=== PATIENT | male | born 1965 | race Caucasian/White ===

== ENCOUNTER 2017-03-12 15:36 | Inpatient (IN) | payer OTHER ==
[~2017-03-12] VITALS: Ht 172.7 cm; Wt 68.5 kg
[2017-03-12] VITALS (10 sets, daily range): BP systolic 84–127; BP diastolic 56–83; PULSE 98–149; RESP 18–24; TEMP 99–102.3; O2SAT 97–99
[~2017-03-12 15:36] MED LIST: Z.0.NO CURRENT MEDS
--- NOTE | 2017-03-12 15:48 | PD ---
Physical Exam Time Seen by Provider: 15:45 Narrative 52yo M c/o L knee, neck and back pain, and left foot pain after falling due to possible syncopal episode on . Patient seen in triage. VS reviewed. Awaiting bed placement. Data Data Last Documented VS Vital Signs Date Time Temp Pulse Resp B/P Pulse Ox O2 Delivery O2 Flow Rate FiO2 03/12/17 15:37 99.6 149 20 84/58 98 Room Air MDM Supervised Visit with DUNIA: Angela Albarran Mar 12, 2017 15:48
[2017-03-12] MEDS ORDERED: PRIL20TA2 PO (17:02)
[2017-03-12] MEDS ORDERED: LEVE500 PO (17:02)
[2017-03-12] MEDS ORDERED: [UNRECOGNIZED DRUG - REMARK] (17:04)
--- NOTE | 2017-03-12 17:12 | PD ---
HPI Chief Complaint: Syncope/Near-Syncope Time Seen by Provider: 17:11 Travel History International Travel<30 days: No Contact w/Intl Traveler<30days: No Traveled to known affect area: No History of Present Illness HPI 52-year-old male with PMH of chronic alcoholism presents to the ED for evaluation of left knee pain and back pain following unwitnessed fall 3 days ago. Patient states that he became dizzy and fell. He states he's been minimally ambulatory since the accident. On presentation he denies fevers, chills, headache, chest pain, palpitations, abdominal pain, nausea, vomiting, dysuria. He states he has not had a drink today, last drink "a few beers" last night. He endorses history of alcohol withdrawal seizures. He denies chronic health problems and takes no daily medications. PFSH Past Medical History Blood Disorders: No Cancer: No Cardiovascular Problems: No Endocrine: No Gastrointestinal Disorders: No Genitourinary: No Immune Disorder: No Musculoskeletal: No Neurologic: No Psychiatric: No Respiratory: No Seizures: Yes (2 YEARS AGO) Influenza Vaccination: No Past Surgical History Pacemaker: No Social History Alcohol Use: Yes (BEER [employer] LIQUOR EVERY DAY) Tobacco Use: No (quit 3.5 yrs ago) Substance Use: No Allergies-Medications (Allergen,Severity, Reaction): Coded Allergies: No Known Allergies (Verified , 03/12/17) Reported Meds & Prescriptions Reported Meds & Active Scripts Active Reported [bp med unknown] Prilosec (Omeprazole Magnesium) 20 Mg Tab 20 Mg PO DAILY Keppra (Levetiracetam) 500 Mg Tab 500 Mg PO BID Review of Systems Except as stated in HPI: all other systems reviewed are Neg Physical Exam Narrative GENERAL: Well-nourished, thin, tremulous, chronically ill-appearing white male in no acute distress. SKIN: Focused skin assessment warm/dry. HEAD: Normocephalic. Atraumatic. EYES: No scleral icterus. No injection or drainage. PERRLA. EOMI. NECK: Supple, trachea midline. No JVD or lymphadenopathy. Tender to palpation of the paraspinal musculature of the neck. No midline tenderness. CARDIOVASCULAR: Regular rate and rhythm without murmurs, gallops, or rubs. RESPIRATORY: Breath sounds equal bilaterally. No accessory muscle use. GASTROINTESTINAL: Abdomen flat, nontender, nondistended. Active bowel sounds. MUSCULOSKELETAL: No cyanosis, or edema. FOCUSED LEFT LOWER EXTREMITY EXAM: 2+ DP pulse. Tender to palpation of the anterior aspect of the knee. No patellar balloting. No warmth. No erythema. Patient maintains active ROM but this is painful. Neurovascularly intact. NEUROLOGICAL: Awake and alert. Cranial nerves II through XII intact. Motor and sensory grossly within normal limits. Five out of 5 muscle strength in all muscle groups. Normal speech. BACK: No obvious deformity. No CVA tenderness. Tender to palpation of the midline lumbar spine. Tender to palpation of the paraspinal musculature in the mid thoracic area. Data Data Last Documented VS Vital Signs Date Time Temp Pulse Resp B/P Pulse Ox O2 Delivery O2 Flow Rate FiO2 03/12/17 19:58 102.3 125 24 126/83 98 Room Air Orders Complete Blood Count With Diff (03/12/17:) Comprehensive Metabolic Panel (03/12/17:) Magnesium (Mg) (03/12/17:) Ckmb (Isoenzyme) Profile (03/12/17:) Troponin I (03/12/17:) Act Partial Throm Time (Ptt) (03/12/17:) Prothrombin Time / Inr (Pt) (03/12/17:) Urinalysis - C+S If Indicated (03/12/17 17:) Chest, Single Ap (03/12/17 17:22) Ct Brain W/O Iv Contrast(Rout) (03/12/17 17:) Ecg Monitoring (03/12/17:) Iv Access Insert/Monitor (03/12/17:) Oximetry (03/12/17:) Sodium Chloride 0.9% Flush (Ns Flush) (03/12/17 17:30) Sodium Chlor 0.9% 1000 Ml Inj (Ns 1000 M (03/12/17 17:22) Lorazepam Inj (Ativan Inj) (03/12/17 17:30) Alcohol Withdrawal Asmt-Ciwa ONCE (03/12/17 17:23) Lorazepam (Ativan) (03/12/17 17:30) Lorazepam Inj (Ativan Inj) (03/12/17 17:30) Lorazepam (Ativan) (03/12/17 17:30) Lorazepam Inj (Ativan Inj) (03/12/17 17:30) Lorazepam Inj (Ativan Inj) (03/12/17 17:30) Lorazepam Inj (Ativan Inj) (03/12/17 17:30) Knee, Complete (4vws) (03/12/17 17:40) Spine, Lumbar - Ltd (Ap & Lat) (03/12/17 17:40) Electrocardiogram (03/12/17 17:02) Calcium Gluconate Inj (Calcium Gluconate (03/12/17 19:45) Sodium Chlor 0.9% 1000 Ml Inj (Ns 1000 M (03/12/17 20:00) Lactic Acid Sepsis Protocol (03/12/17 20:00) Blood Culture (03/12/17 20:00) Acetaminophen (Tylenol) (03/12/17 20:15) Piperacil-Tazo 3.375 Gm Premix (Zosyn 3. (03/12/17 20:15) Magnesium Sulfate 1 Gm Premix (Magnesium (03/12/17 20:15) Labs Laboratory Tests Test 03/12/17 17:40 White Blood Count 15.1 TH/MM3 Red Blood Count 3.28 MIL/MM3 Hemoglobin 11.4 GM/DL Hematocrit 33.8 % Mean Corpuscular Volume 103.0 FL Mean Corpuscular Hemoglobin 34.6 PG Mean Corpuscular Hemoglobin 33.6 % Concent Red Cell Distribution Width 16.1 % Platelet Count 225 TH/MM3 Mean Platelet Volume 9.1 FL Neutrophils (%) (Auto) 81.3 % Lymphocytes (%) (Auto) 4.6 % Monocytes (%) (Auto) 13.4 % Eosinophils (%) (Auto) 0.0 % Basophils (%) (Auto) 0.7 % Neutrophils # (Auto) 12.3 TH/MM3 Lymphocytes # (Auto) 0.7 TH/MM3 Monocytes # (Auto) 2.0 TH/MM3 Eosinophils # (Auto) 0.0 TH/MM3 Basophils # (Auto) 0.1 TH/MM3 CBC Comment DIFF FINAL Differential Comment Prothrombin Time 10.7 SEC Prothromb Time International 1.0 RATIO Ratio Activated Partial 31.9 SEC Thromboplast Time Sodium Level 128 MEQ/L Potassium Level 3.6 MEQ/L Chloride Level 95 MEQ/L Carbon Dioxide Level 20.9 MEQ/L Anion Gap 12 MEQ/L Blood Urea Nitrogen 51 MG/DL Creatinine 2.34 MG/DL Estimat Glomerular Filtration 29 ML/MIN Rate Random Glucose 142 MG/DL Calcium Level 6.5 MG/DL Protein Corrected Calcium 6.3 MG/DL Magnesium Level 0.8 MG/DL Total Bilirubin 0.6 MG/DL Aspartate Amino Transf 27 U/L (AST/SGOT) Alanine Aminotransferase 25 U/L (ALT/SGPT) Alkaline Phosphatase 117 U/L Total Creatine Kinase 80 U/L Troponin I LESS THAN 0.02 NG/ML Total Protein 7.6 GM/DL Albumin 2.8 GM/DL [facility] Medical Decision Making Medical Screen Exam Complete: Yes Emergency Medical Condition: Yes Interpretation(s) EKG rate 99, sinus rhythm, sinus arrhythmia. IA interval 125, QRS 90, QTC 363. Normal axis. No acute ST changes. Reviewed by Dr. Jordan. Differential Diagnosis Alcohol withdrawal versus musculoskeletal pain versus ACS versus ICH versus seizure versus UTI versus other Narrative Course 52-year-old male with PMH of chronic alcoholism, withdrawal seizure presents to the ED for evaluation of left knee pain and back pain following unwitnessed fall 3 days ago. Patient states that he became dizzy and fell. He states he's been minimally ambulatory since the accident. On presentation he denies fevers , chills, headache, chest pain, palpitations, abdominal pain, nausea, vomiting, dysuria. He states he has not had a drink today, last drink "a few beers" last night. Temp 99.6, pulse 149, BP 84/58 on presentation. Physical exam reveals a chronically ill-appearing white male in no acute distress. No focal neuro deficits. No appreciable M/R/G. Chest CTAB. Abdomen soft and nontender. Left anterior knee tender without warmth or erythema. Range of motion intact though painful. Some paraspinal muscular tenderness in the cervical and thoracic regions. Mild midline tenderness in the lumbar region. No CVA tenderness. IV was established. The patient was administered 1 L normal saline. CIWA protocol was ordered and the patient was administered 1 mg Ativan IV. EKG as above. Cardiac enzymes negative 1. CXR unremarkable. CBC: WBC 15.1 with a left shift. Hemoglobin 11.4. CMP: Sodium 128, chloride 95. BUN 51, creatinine 2.3. Protein corrected calcium 6.3. Magnesium 0.8. CT brain: Unremarkable. Lumbar spine x-ray: Degenerative changes without acute pathology. Left knee x-ray: Small effusion and prepatellar swelling. On recheck rectal temp 102.3. Pulse 125. BP 126/83. Patient was administered 2 additional liters of normal saline, 1 g calcium IV, 1 g Tylenol by mouth, 1 g magnesium 2 IV. Blood cultures were obtained. Lactate was drawn. The UA is pending but I suspect this is the source of the leukocytosis. Zosyn ordered. The patient meet severe sepsis criteria. Plan to admit to the medicine service for further evaluation of suspected urosepsis, acute kidney injury, acute alcohol withdrawal. I discussed this plan with the patient who is agreeable. I spoke with who agrees to accept the patient to the medicine service under Dr. Kern. Please see medicine notes for disposition. Sepsis Criteria SIRS Criteria (2 or more): Temp > 100.9 or < 96.8, Heart rate over 90, WBC > 61198, < 4000 or > 10% bands Sepsis Criteria (SIRS+source): Infect source susp/known Severe Sepsis (+one): Acute Oliguria/Renal Failure Criteria Outcome: Meets severe sepsis criteria Nory Sr Mar 12, 2017 17:12
[2017-03-12] MEDS ORDERED: SODIUM CHLOR 0.9% 1000 ML INJ 1,000 ML IV ONE ×2 (17:22→20:00)
[2017-03-12] MEDS ORDERED: LORazepam 1 MG TAB PO PRN (17:30)
[2017-03-12] MEDS ORDERED: LORazepam 2 MG/ML VIAL IV PUSH PRN ×3 (17:30)
[2017-03-12] MEDS ORDERED: LORazepam 2 MG/ML VIAL IV PUSH ONE (17:30)
[2017-03-12] MEDS ORDERED: LORazepam 2 MG TAB PO PRN (17:30)
[2017-03-12] MEDS ORDERED: SODIUM CHLORIDE 0.9% FLUSH 10 ML FLUSH IVF PRN (17:30)
--- NOTE | 2017-03-12 17:59 | RADRPT ---
EXAM DATE/TIME: 03/12/2017 17:27 [facility] COMPARISON: No previous studies available for comparison. INDICATIONS : Syncope. MEDICAL HISTORY : None. SURGICAL HISTORY : None. ENCOUNTER: Initial ACUITY: 1 day PAIN SCORE: 0/10 LOCATION: Bilateral chest FINDINGS: A single view of the chest demonstrates the lungs to be symmetrically aerated without evidence of mas s, infiltrate or effusion. The cardiomediastinal contours are unremarkable. Osseous structures are intact. CONCLUSION: No evidence of acute cardiopulmonary disease. Juanpablo Berry MD on March 12, 2017 at 17:57 Board Certified Radiologist. This report was verified electronically.
--- NOTE | 2017-03-12 18:10 | EKG ---
Date Performed: 03/12/2017 Time Performed: 17:02:09 PTAGE: 52 years EKG: Sinus rhythm WITH SINUS ARRHYTHMIA POSSIBLE RIGHT VENTRICULAR CONDUCTION DELAY BORDERLINE ECG Compared to the PREVIOUS TRACING rate has decreased PREVIOUS TRACIN08/30/2006 12.41 DOCTOR: Tate Patel Interpretating Date/Time 03/12/2017 18:10:04
--- NOTE | 2017-03-12 18:23 | RADRPT ---
EXAM DATE/TIME: 03/12/2017 17:52 [facility] COMPARISON: No previous studies available for comparison. INDICATIONS : Low back pain, fell MEDICAL HISTORY : None. SURGICAL HISTORY : None. ENCOUNTER: Initial ACUITY: 3 days PAIN SCORE: 5/10 LOCATION: Lumbar spine FINDINGS: There is mild levoconvex curvature centered around L3. No fracture or subluxation seen in the lumbar spine. Vertebral bodies have normal height. There is moderate to severe disc space narrowing with vacuum phenomenon at L4/L5 and L5/S1. There is mild disc space narrowing at the other levels. Moderate to severe bilateral facet osteoarthritis at L4/L5 and L5/S1. There is mild facet osteoarthri tis at the other levels. CONCLUSION: 1. Mild scoliosis and lower lumbar predominant degenerative changes as above. 2. No fracture or subluxation. Juanpablo Berry MD on March 12, 2017 at 18:20 Board Certified Radiologist. This report was verified electronically.
--- NOTE | 2017-03-12 18:24 | RADRPT ---
EXAM DATE/TIME: 03/12/2017 17:54 [facility] COMPARISON: No previous studies available for comparison. INDICATIONS : Left knee pain, fell MEDICAL HISTORY : None. SURGICAL HISTORY : None. ENCOUNTER: Initial ACUITY: 3 days PAIN SCORE: 7/10 LOCATION: Left Knee FINDINGS: No fracture or subluxation of the left knee. There does appear to be a small joint effusion, nonspeci fic. Mild prepatellar soft tissue swelling. CONCLUSION: Intact left knee. Small, nonspecific joint effusion and mild prepatellar soft tissue swelling. Juanpablo Berry MD on March 12, 2017 at 18:22 Board Certified Radiologist. This report was verified electronically.
--- NOTE | 2017-03-12 18:40 | RADRPT ---
EXAM DATE/TIME: 03/12/2017 18:05 [facility] COMPARISON: No previous studies available for comparison. INDICATIONS : DIZZINESS,FALL,SYNCOPE RADIATION DOSE: 35.45 CTDIvol (mGy) MEDICAL HISTORY : Seizures. SURGICAL HISTORY : None. ENCOUNTER: Initial ACUITY: 1 day PAIN SCALE: 0/10 LOCATION: cranial TECHNIQUE: Multiple contiguous axial images were obtained of the head. Using automated exposure control and adj ustment of the mA and/or kV according to patient size, radiation dose was kept as low as reasonably a chievable to obtain optimal diagnostic quality images. DICOM format image data is available electro nically for review and comparison. FINDINGS: CEREBRUM: The ventricles are normal for age. No evidence of midline shift, mass lesion, hemorrhage or acute in farction. No extra-axial fluid collections are seen. POSTERIOR FOSSA: The cerebellum and brainstem are intact. The 4th ventricle is midline. The cerebellopontine angle i s unremarkable. EXTRACRANIAL: The visualized portion of the orbits is intact. SKULL: The calvaria is intact. No evidence of skull fracture. CONCLUSION: Negative noncontrast head CT. Juanpablo Berry MD on March 12, 2017 at 18:38 Board Certified Radiologist. This report was verified electronically.
[2017-03-12 18:51] LABS: AUTOMATED NEUTROPHIL # 12.3 TH/MM3 (1.8-7.7); BASOPHIL # 0.1 TH/MM3 (0-0.2); BASOPHIL % 0.7 % (0.0-2.0); HEMATOCRIT 33.8 % (39.0-51.0); HEMO FLAGS DIFF FINAL; LYMPH % 4.6 % (9.0-44.0); LYMPHOCYTE # 0.7 TH/MM3 (1.0-4.8); MEAN CORPUSCULAR HEMOGLOBIN 34.6 PG (27.0-34.0); MEAN CORPUSCULAR HGB CONC 33.6 % (32.0-36.0); MONO % 13.4 % (0.0-8.0); NEUT % 81.3 % (16.0-70.0); PLATELET COUNT 225 TH/MM3 (150-450); RED BLOOD COUNT 3.28 MIL/MM3 (4.50-5.90); RED CELL DISTRIBUTION WIDTH 16.1 % (11.6-17.2); WHITE BLOOD COUNT 15.1 TH/MM3 (4.0-11.0)
[2017-03-12 19:01] LABS: APTT (PATIENT) 31.9 SEC (24.3-30.1); PROTHROMBIN TIME - PATIENT 10.7 SEC (9.8-11.6)
[2017-03-12 19:16] LABS: ALKALINE PHOSPHATASE 117 U/L (45-117); ALT (GPT) 25 U/L (12-78); ANION GAP 12 MEQ/L (5-15); AST (GOT) 27 U/L (15-37); BICARBONATE 20.9 MEQ/L (21.0-32.0); BLOOD UREA NITROGEN 51 MG/DL (7-18); CHLORIDE 95 MEQ/L (98-107); GLOMERULAR FILTRATION RATE 29 ML/MIN (>89); MAGNESIUM 0.8 MG/DL (1.5-2.5); POTASSIUM 3.6 MEQ/L (3.5-5.1); SODIUM (NA) 128 MEQ/L (136-145); TOTAL BILIRUBIN ADULT 0.6 MG/DL (0.2-1.0)
[2017-03-12 19:28] LABS: CREATINE KINASE 80 U/L (39-308)
[2017-03-12 19:30] LABS: CALCIUM-PROTEIN CORRECTED 6.3 MG/DL (8.5-10.1)
[2017-03-12] MEDS ORDERED: CALCIUM GLUCONATE INJ 1 GM in SODIUM CHLORIDE 0.9% INJ 100 ML IV ONE (19:45)
[2017-03-12] MEDS: LORazepam 2 MG/ML VIAL IV PUSH PRN ×2 (20:04→20:06)
[2017-03-12] MEDS ORDERED: ACETAMINOPHEN 500 MG CPLT PO ONE (20:15)
[2017-03-12] MEDS ORDERED: PIPERACIL-TAZO 3.375 GM PREMIX 50 ML IV ONE (20:15)
[2017-03-12] MEDS: MAGNESIUM SULFATE 1 GM PREMIX 100 ML IV SCH ×2 (20:25→21:10)
--- NOTE | 2017-03-12 22:48 | HHI.FPPN ---
Subjective Remarks Medicine attending note: Patient seen and examined 22:40. 52-year-old gentleman who initially was somnolent, had received some prior Ativan per protocol, awake, with verbal processing was able to say that it was [facility], the eighth month. When asked for history of present illness initially he states that he did not know what happened and then later stated that in his home he got up from the sofa, went to the kitchen and "blacked out" . From there he recalls having low back pain, left knee pain. Patient on continuous prompting does not give additional history. Was not aware that he had a fever. Denies having any cough, vomiting or diarrhea, urinary symptoms. Records indicate history of chronic alcoholism, when asked about his consumption the patient states "I drink a little ". Would not be more specific. Denies smoking. Denies substance use according to the records. Old records to indicate history of a seizure disorder dating back 10 years. Possibly alcohol related. Please refer to the resident's history and physical for complete discussion of presenting illness, past medical history, family history, social history, review of systems. Objective Vitals Vital signs noted. Temperature early recorded to be 102.3. Respirations 20 temperature pulse 98 blood pressure 119/79 saturation 97% on room air. Gen. appearance: Middle-age gentleman who makes eye contact, paucity of speech, has to be pressed verbally for any details. HEENT: Tympanic membranes not well seen. Pupils equal round reactive BMs intact oropharynx diminished dentition. No obvious abscess. Neck: No adenopathy. Lungs: Diminished clear breath sounds, occasional rhonchi. Cardiac: S1-S2, no S3, no rubs, and no murmurs. Abdomen: Active bowel sounds, appearance unremarkable. On palpation organomegaly, no pulsatile masses, no tenderness. Extremities: Notable for significant effusion left knee, patient reports severe pain on attempting to flex his knee. There is no obvious puncture wounds, no redness. Left knee does have warmth. Right knee full range of motion, normal temperature to touch, no effusion. Muscular skeletal: Inspection of the back does not reveal any obvious injuries or deformities. Neurologic: Cranial nerves II through XII not localize. Mental status is as above may have the significantly affected by recent Ativan. Vital Signs Date Time Temp Pulse Resp B/P Pulse Ox O2 Delivery O2 Flow Rate FiO2 03/12/17 21:45 99.0 98 20 119/74 97 Room Air 03/12/17 19:58 102.3 125 24 126/83 98 Room Air 03/12/17 17:08 125 21 127/78 98 Room Air 03/12/17 15:58 137 20 87/56 98 Room Air 03/12/17 15:37 99.6 149 20 84/58 98 Room Air Result Diagram: 03/12/17 1740 03/12/17 1740 A/P Assessment and Plan Clinical assessment 52-year-old gentleman admitted with history of "blacking out", complaining of left knee pain with the significant effusion and severe pain on flexion and extension, low back pain with scoliosis mild noted on x-ray, no obvious bony injury. X-rays of the left knee are nonrevealing for bony injury. Other abnormalities including hyponatremia 128, relative hypokalemia 3.6, and 9 12, creatinine 2.34, decreased LCM 6.3. I put some count 15,100 hemoglobin 11.4 hematocrit 38 3.8, platelets are 25,000. Patient meets criteria for sepsis and foot cultures have been drawn as well as empiric antibiotics administered. Additional history pending patient's arousal from probable Ativan affect. Patient seen and examined, case to be discussed with the resident team, Anand. agrees with assessment and plan as indicated and outlined and ordered at this time. Nixon Kern MD Mar 12, 2017 22:48
[2017-03-12] MEDS ORDERED: SODIUM CHLORIDE 0.9% FLUSH 10 ML FLUSH IV FLUSH PRN (23:00)
--- NOTE | 2017-03-12 23:46 | HHI.HP ---
[facility] Service Family Medicine Primary Care Physician [facility] Admission Diagnosis severe sepsis, acute kidney injury, alcohol withdrawal Diagnoses: International Travel<30 Days: No Contact w/Intl Traveler<30days: No Known Affected Area: No History of Present Illness 52 year old male with a history of alcoholism presents to the ED after falling in his kitchen. he is uncertain but believes he may have blacked out for a few seconds when he fell. His roommate witnessed the incident and did not report any convulsions. He did not have loss of stool or urine or bite his tongue. He fell backwards, twisted his knee, and landed on his buttocks, lower back, and right shoulder. He has pain and swelling in his left knee and pain in his lower back and right shoulder. He has pain in his posterior neck. He reports no fevers, chills, recent weight loss, chest pain, abdominal pain, nausea, vomiting , or diarrhea. He reports drinking a few beers last night. He has a history of alcohol withdrawal seizures in the past, 4X at least. He reports no significant past medication history. He has gotten intermittently lightheaded for the past 5 years ever since starting new blood pressure medicines. He has never passed out before. He reports no heart problems in the past. Review of Systems Constitutional: DENIES: Diaphoretic episodes, Fatigue, Fever, Weight gain, Chills, Change in appetite, Night Sweats Endocrine: DENIES: Polydipsia, Polyuria, Polyphagia Eyes: DENIES: Blurred vision, Eye pain, Vision loss, Double Vision Ears, nose, mouth, throat: DENIES: Nasal discharge, Throat pain Respiratory: DENIES: Cough, Wheezing, Sputum production, Shortness of breath Cardiovascular: DENIES: Chest pain, Palpitations, Dyspnea on Exertion, Lower Extremity Edema, Claudication Gastrointestinal: DENIES: Abdominal pain, Black stools, Bloody stools, Constipation, Diarrhea, Nausea, Vomiting Genitourinary: DENIES: Urgency, Hematuria, Dysuria Musculoskeletal: COMPLAINS OF: Joint pain, Stiffness, Joint Swelling, Back pain , Neck pain, DENIES: Muscle aches Integumentary: DENIES: Rash Hematologic/lymphatic: DENIES: Lymphadenopathy Immunologic/allergic: DENIES: Eczema Neurologic: DENIES: Localized weakness, Seizures, Poor Balance Psychiatric: DENIES: Anxiety, Confusion, Mood changes, Depression, Hallucinations, Agitation Past Family Social History Past Medical History None reported Past Surgical History None reported Reported Medications Reported Meds & Active Scripts Active Reported [bp med unknown] Prilosec (Omeprazole Magnesium) 20 Mg Tab 20 Mg PO DAILY Keppra (Levetiracetam) 500 Mg Tab 500 Mg PO BID Allergies: Coded Allergies: No Known Allergies (Verified , 03/12/17) Active Ordered Medications Inpatient Medications Acetaminophen 1000 mg 1,000 mg ONCE ONCE PO Last administered on 03/12/17 20: 15; Start 03/12/17 at 20:15; Stop 03/12/17 at 20:16; Status DC Calcium Gluconate/ Sodium Chloride (Calcium Gluconate Inj/NS Inj) 110 ml @ 110 mls/hr ONCE ONCE IV Last administered on 03/12/17 19:45; Start 03/12/17 at 19 :45; Stop 03/12/17 at 20:44; Status DC Clonidine (Catapres) 0.1 mg Q6H PRN PO SEE LABEL COMMENTS; Start 03/13/17 at 00 :00 Flumazenil (Romazicon Inj) 0.2 mg Q1M PRN IV PUSH SEE LABEL COMMENTS; Start at 00:00 Folic Acid (Folate) 1 mg DAILY PO ; Start 03/13/17 at 09:00; Stop 03/18/17 at 08 :59 Heparin Sodium (Porcine) (Heparin Inj) 5,000 units Q8H SQ ; Start 03/13/17 at 06 :00 Lorazepam (Ativan Inj) 2 mg Q15M PRN IV PUSH CIWA > 20; Start 03/13/17 at 00:00 Lorazepam (Ativan) 2 mg Q2H PRN PO CIWA 11-14; Start 03/13/17 at 00:00 Lorazepam 2 mg 2 mg Q15M PRN IV PUSH CIWA > 20; Start 03/12/17 at 17:30; Stop 03/13/17 at 00:00; Status DC Magnesium Sulfate/ Dextrose (Magnesium Sulfate 1 Gm Premix) 100 ml @ 100 mls/ hr Q1H IV Last administered on 03/12/17 21:10; Start 03/12/17 at 20:15; Stop 03/12/17 at 22:14; Status DC Multivitamins/ Minerals Therapeutic (Theragran M Tab) 1 tab DAILY PO ; Start at 09:00; Stop 03/18/17 at 08:59 Ondansetron HCl (Zofran Inj) 4 mg Q6H PRN IV NAUSEA OR VOMITING; Start at 00:00 Piperacillin Sod/ Tazobactam Sod 100 ml @ 200 mls/hr Q6H IV ; Start 03/13/17 at 04:30 Sodium Chloride (NS 1000 ml Inj) 1,000 ml @ 115 mls/hr Q8H42M IV Last administered on 03/12/17t 23:55; Start 03/12/17 at 23:46 Sodium Chloride (NS Flush) 2 ml UNSCH PRN IV FLUSH FLUSH AFTER USING IV ACCESS ; Start 03/12/17 at 23:00; Stop 03/13/17 at 00:00; Status DC Sodium Chloride 2 ml 2 ml BID IV FLUSH ; Start 03/13/17 at 09:00; Stop 03/13/17 at 09:00; Status DC Thiamine HCl (Vitamin B1) 100 mg DAILY PO ; Start 03/13/17 at 09:00 Family History Uncertain Social History Smoked 3 PPD, quit 3.5 years ago Significant daily alcohol use Lives with roommate Not currently working Gets around well at home per his report Reports he is independent in functioning Physical Exam Vital Signs Vital Signs Date Time Temp Pulse Resp B/P Pulse Ox O2 Delivery O2 Flow Rate FiO2 03/12/17 22:59 97 21 03/12/17 21:45 99.0 98 20 119/74 97 Room Air 03/12/17 19:58 102.3 125 24 126/83 98 Room Air 03/12/17 17:08 125 21 127/78 98 Room Air 03/12/17 15:58 137 20 87/56 98 Room Air 03/12/17 15:37 99.6 149 20 84/58 98 Room Air Physical Exam GENERAL: Lying in bed, slightly disheveled, no acute distress SKIN: No rashes, ecchymoses or lesions. HEAD: Atraumatic. Normocephalic. No temporal or scalp tenderness. EYES: Pupils equal round and reactive. Extraocular motions intact. No scleral icterus. No injection or drainage. ENT: Nose without bleeding, purulent drainage or septal hematoma. Throat without erythema, tonsillar hypertrophy or exudate. Uvula midline. Airway patent. NECK: Trachea midline. No JVD or lymphadenopathy. Supple, nontender, no meningeal signs. CARDIOVASCULAR: Regular rate and rhythm without murmurs, gallops, or rubs. Normal pulses peripherally. RESPIRATORY: Clear to auscultation. Breath sounds equal bilaterally. No wheezes , rales, or rhonchi. GASTROINTESTINAL: Abdomen soft, non-tender, nondistended. No hepato-splenomegaly , or palpable masses. No guarding. MUSCULOSKELETAL: Left knee with mild effusion, no erythema or warmth, bony anatomy without obvious deformity, patella is stable, no joint laxity, pain on the medial and lateral joint lines, positive ballottement test, too painful for Arelis test, does not want to flex knee due to pain. Has lower paraspinal pain and paraspinal neck pain bilaterally. Has full range of motion of upper extremities, left lower extremity movement limited by pain. NEUROLOGICAL: Awake and alert. Cranial nerves II through XII intact. Motor and sensory grossly within normal limits. Five out of 5 muscle strength in all muscle groups. Normal speech. Laboratory Laboratory Tests Test 03/12/17 03/12/17 17:40 20:45 White Blood Count 15.1 Red Blood Count 3.28 Hemoglobin 11.4 Hematocrit 33.8 Mean Corpuscular Volume 103.0 Mean Corpuscular Hemoglobin 34.6 Mean Corpuscular Hemoglobin 33.6 Concent Red Cell Distribution Width 16.1 Platelet Count 225 Mean Platelet Volume 9.1 Neutrophils (%) (Auto) 81.3 Lymphocytes (%) (Auto) 4.6 Monocytes (%) (Auto) 13.4 Eosinophils (%) (Auto) 0.0 Basophils (%) (Auto) 0.7 Neutrophils # (Auto) 12.3 Lymphocytes # (Auto) 0.7 Monocytes # (Auto) 2.0 Eosinophils # (Auto) 0.0 Basophils # (Auto) 0.1 CBC Comment DIFF FINAL Differential Comment Prothrombin Time 10.7 Prothromb Time International 1.0 Ratio Activated Partial 31.9 Thromboplast Time Sodium Level 128 Potassium Level 3.6 Chloride Level 95 Carbon Dioxide Level 20.9 Anion Gap 12 Blood Urea Nitrogen 51 Creatinine 2.34 Estimat Glomerular Filtration 29 Rate Random Glucose 142 Calcium Level 6.5 Protein Corrected Calcium 6.3 Magnesium Level 0.8 Total Bilirubin 0.6 Aspartate Amino Transf 27 (AST/SGOT) Alanine Aminotransferase 25 (ALT/SGPT) Alkaline Phosphatase 117 Total Creatine Kinase 80 Troponin I LESS THAN 0.02 Total Protein 7.6 Albumin 2.8 Lactic Acid Level 0.7 Date/Time Procedure Status Source Growth 03/12/17 20:45 Aerobic Blood Culture Received Blood Peripheral Pending 03/12/17 20:45 Anaerobic Blood Culture Received Blood Peripheral Pending Result Diagram: 03/12/17 17403/12/17 174 Imaging Last 72 hours Impressions Lumbar Spine X-Ray 03/12/171739 Signed Impressions: Service Date/Time: Sunday, March 12, 2017 17:52 - CONCLUSION: 1. Mild scoliosis and lower lumbar predominant degenerative changes as above. 2. No fracture or subluxation. Juanpablo Berry MD Knee X-Ray 03/12/171739 Signed Impressions: Service Date/Time: Sunday, March 12, 2017 17:54 - CONCLUSION: Intact left knee. Small, nonspecific joint effusion and mild prepatellar soft tissue swelling. Juanpablo Berry MD Head CT 03/12/171721 Signed Impressions: Service Date/Time: Sunday, March 12, 2017 18:05 - CONCLUSION: Negative noncontrast head CT. Juanpablo Berry MD Chest X-Ray 03/12/171721 Signed Impressions: Service Date/Time: Sunday, March 12, 2017 17:27 - CONCLUSION: No evidence of acute cardiopulmonary disease. Juanpablo Berry MD Septic Shock Reassessment Heart: Regular rate and rhythm Lungs: Clear Skin: Warm Capillary Refill: <2 seconds Assessment and Plan Assessment and Plan 52 year old male presents after presyncopal versus syncopal episodes with knee and back/neck injuries from fall, significant alcohol abuse with history of alcohol withdrawal seizures, leukocytosis, fever, tachycardia, hypotension responsive to fluid boluses. Code Status FULL CODE Discussed Condition With Seen and discussed with Dr. Mcintyre Discussed with Dr. Kern Problem List: (1) SIRS (systemic inflammatory response syndrome) Status: Acute Plan: Fever 102.3, tachycardic, respiratory rate up to 22, WBC 15.1. Lactic acid normal. Chest x-ray and urinalysis normal. No obvious soft tissue infections. No signs of meningitis. Initially presented with hypotension and tachycardia, but resolved with IV fluids. Has acute kidney injury. - Received two boluses of fluids in the ED - Receiving Zosyn empirically (2) Syncope Status: Acute Plan: Possible syncope versus presyncope versus seizure. History of alcohol withdrawal seizures in the past. Did not have reported convulsions, tongue biting, loss of stool or urine. Not sure if he ever actually blacked out. - Check ECHO - EEG to rule out seizure - Seizure precautions - Check Keppra level - Continue Keppra from home - Telemetry (3) Macrocytic anemia Status: Chronic Plan: hemoglobin low at 11.4, MCV 103.0. Possibly effect of alcohol. - Check B12, folate - Counseling on alcohol abuse (4) Acute kidney injury Status: Acute Plan: Presume acute kidney injury with BUN 51, Cr 2.34. - Monitor function - Avoid nephrotoxic agents - Avoid IV contrast if possible - Avoid NSAIDs - Renal ultrasound if not improving - Renal consult if not improving - Monitor electrolytes (5) Alcoholism /alcohol abuse Status: Chronic Plan: History of alcoholism, had fall at home, unclear whether related to an alcohol withdrawal seizure. Had 4 alcohol withdrawal seizures in the past. - Counseling on alcohol abuse - [facility] protocol - MV, thiamine, folic acid - Ativan PRN for withdrawal symptoms (6) Dehydration Status: Acute Plan: Initially with tachycardia, low blood pressures, elevated lactic acid. Significantly improved after fluid boluses in ED. - Continue NS at maintenance. - Monitor hydration status. (7) Hypomagnesemia Status: Acute Plan: Replaced in ED, monitor (8) Hypocalcemia Status: Acute Plan: Severe hypocalcemia - Give calcium gluconate in ED - Check calcium in the morning - Magnesium also low, monitor. (9) Knee effusion, left Status: Acute Plan: Trauma effusion of the knee, pain with flexion, positive ballottement test, no obvious joint laxities or deformities. Negative x-ray for acute fracture. Had twisting motion of knee with fall. - Pain management: Avoid NSAIDs. Tylenol for mild pain, [place] for more severe pain. - Activity modification - Ice/heat applications - MRI as outpatient if not resolving to assess for ligament/tendon injury (10) Nutrition, metabolism, and development symptoms Status: Acute Plan: - Renal diet - Hypovolemic hyponatremia, receiving IV fluids - Acute kidney injury, avoid nephrotoxic agents - Monitor electrolytes regularly and replace - Severe hypocalcemia, replace and monitor - surveillance system monitor for electrolyte abnormalities - IVF NS at maintenance, adjust as needed (11) No contraindication to deep vein thrombosis (DVT) prophylaxis Status: Acute Plan: Heparin 5000 units tid Physician Certification 2 Midnight Certification Type: Admission for Inpatient Services Order for Inpatient Services The services are ordered in accordance with Medicare regulations or non- Medicare payer requirements, as applicable. In the case of services not specified as inpatient-only, they are appropriately provided as inpatient services in accordance with the 2-midnight benchmark. Estimated LOS (days): 3 days is the estimated time the patient will need to remain in the hospital, assuming treatment plan goals are met and no additional complications. Post-Hospital Plan: Home Ki Barr MD R3 Mar 12, 2017 23:46 Potassium Level 3.6 Chloride Level 95 Carbon Dioxide Level 20.9 Anion Gap 12 Blood Urea Nitrogen 51 Creatinine 2.34 Estimat Glomerular Filtration 29 Rate Random Glucose 142 Calcium Level 6.5 Protein Corrected Calcium 6.3 Magnesium Level 0.8 Total Bilirubin 0.6 Aspartate Amino Transf 27 (AST/SGOT) Alanine Aminotransferase 25 (ALT/SGPT) Alkaline Phosphatase 117 Total Creatine Kinase 80 Troponin I LESS THAN 0.02 Total Protein 7.6 Albumin 2.8 Lactic Acid Level 0.7 Date/Time Procedure Status Source Growth 03/12/17 20:45 Aerobic Blood Culture Received Blood Peripheral Pending 03/12/17 20:45 Anaerobic Blood Culture Received Blood Peripheral Pending Result Diagram: 03/12/17173903/12/171739 Imaging Last 72 hours Impressions Lumbar Spine X-Ray 03/12/171739 Signed Impressions: Service Date/Time: Sunday, March 12, 2017 17:52 - CONCLUSION: 1. Mild scoliosis and lower lumbar predominant degenerative changes as above. 2. No fracture or subluxation. Juanpablo Berry MD Knee X-Ray 03/12/171739 Signed Impressions: Service Date/Time: Sunday, March 12, 2017 17:54 - CONCLUSION: Intact left knee. Small, nonspecific joint effusion and mild prepatellar soft tissue swelling. Juanpablo Berry MD Head CT 03/12/171721 Signed Impressions: Service Date/Time: Sunday, March 12, 2017 18:05 - CONCLUSION: Negative noncontrast head CT. Juanpablo Berry MD Chest X-Ray 03/12/171721 Signed Impressions: Service Date/Time: Sunday, March 12, 2017 17:27 - CONCLUSION: No evidence of acute cardiopulmonary disease. Juanpablo Berry MD Septic Shock Reassessment Heart: Regular rate and rhythm Lungs: Clear Skin: Warm Capillary Refill: <2 seconds Assessment and Plan Assessment and Plan 52 year old male presents after presyncopal versus syncopal episodes with knee and back/neck injuries from fall, significant alcohol abuse with history of alcohol withdrawal seizures, leukocytosis, fever, tachycardia, hypotension responsive to fluid boluses. Code Status FULL CODE Discussed Condition With Seen and discussed with Dr. Mcintyre Discussed with Dr. Kern Problem List: (1) Macrocytic anemia Status: Acute (2) Nutrition, metabolism, and development symptoms Status: Acute (3) No contraindication to deep vein thrombosis (DVT) prophylaxis Status: Acute (4) Hypomagnesemia Status: Acute (5) Hypocalcemia Status: Acute (6) Dehydration Status: Acute (7) Acute kidney injury Status: Acute (8) Syncope Status: Acute (9) Knee effusion, left Status: Acute Physician Certification 2 Midnight Certification Type: Admission for Inpatient Services Order for Inpatient Services The services are ordered in accordance with Medicare regulations or non- Medicare payer requirements, as applicable. In the case of services not specified as inpatient-only, they are appropriately provided as inpatient services in accordance with the 2-midnight benchmark. Estimated LOS (days): 3 days is the estimated time the patient will need to remain in the hospital, assuming treatment plan goals are met and no additional complications. Post-Hospital Plan: Home Ki Barr MD R3 Mar 12, 2017 23:46
[2017-03-12] MEDS: SODIUM CHLOR 0.9% 1000 ML INJ 1,000 ML IV SCH (23:55)
[2017-03-13] VITALS (10 sets, daily range): BP systolic 102–141; BP diastolic 70–89; PULSE 86–132; RESP 18–20; TEMP 97.4–100.5; O2SAT 95–100
[2017-03-13] MEDS ORDERED: LORazepam 2 MG/ML VIAL IV PUSH PRN ×4
[2017-03-13] MEDS ORDERED: LORazepam 1 MG TAB PO PRN
[2017-03-13] MEDS ORDERED: FLUMAZENIL 0.5 MG/5 ML VIAL IV PUSH PRN
[2017-03-13] MEDS ORDERED: LORazepam 2 MG TAB PO PRN
[2017-03-13] MEDS ORDERED: cloNIDine HCL 0.1 MG TAB PO PRN
[2017-03-13] MEDS ORDERED: ONDANSETRON HCL 4 MG/2 ML VIAL IV PRN
[2017-03-13] MEDS: PANTOPRAZOLE SOD 20 MG DELAYED RELEASE TAB PO SCH ×2 (02:25→08:33)
[2017-03-13 02:36] LABS: BLOOD, URINE NEG (NEG); GLUCOSE,URINE NEG (NEG); KETONE, URINE NEG (NEG); MUCUS URINE FEW /lpf (OCC); NITRITE,URINE NEG (NEG); URINE COLOR YELLOW (YELLW/STRAW)
[2017-03-13 02:37] LABS: COMMENT (UR) CULT NOT INDICATED; CULTURE IF INDICATED CULT NOT INDICATED
[2017-03-13] MEDS: PIPERACIL-TAZO 4.5 GM PREMIX 100 ML IV SCH ×4 (04:52→22:47)
[2017-03-13] MEDS: HEPARIN SODIUM - SQ 10,000 UNITS/ML VIAL SQ SCH ×3 (05:44→20:44)
[2017-03-13 08:20] LABS: AUTOMATED NEUTROPHIL # 9.6 TH/MM3 (1.8-7.7); BASOPHIL # 0.1 TH/MM3 (0-0.2); BASOPHIL % 0.6 % (0.0-2.0); EOSINOPHIL % 0.2 % (0.0-4.0); HEMATOCRIT 31.5 % (39.0-51.0); HEMO FLAGS DIFF FINAL; LYMPH % 6.7 % (9.0-44.0); LYMPHOCYTE # 0.8 TH/MM3 (1.0-4.8); MEAN CELL VOLUME 103.8 FL (80.0-100.0); MEAN CORPUSCULAR HGB CONC 34.7 % (32.0-36.0); MONO % 11.2 % (0.0-8.0); NEUT % 81.3 % (16.0-70.0); PLATELET COUNT 198 TH/MM3 (150-450); RED BLOOD COUNT 3.04 MIL/MM3 (4.50-5.90); RED CELL DISTRIBUTION WIDTH 16.7 % (11.6-17.2); WHITE BLOOD COUNT 11.9 TH/MM3 (4.0-11.0)
[2017-03-13] MEDS: SODIUM CHLOR 0.9% 1000 ML INJ 1,000 ML IV SCH ×2 (08:33→12:58)
[2017-03-13] MEDS: THIAMINE HCL 100 MG TAB PO SCH (08:33)
[2017-03-13] MEDS: FOLIC ACID 1 MG TAB PO SCH (08:34)
[2017-03-13] MEDS: levETIRAcetam 500 MG TAB PO SCH ×2 (08:34→20:44)
[2017-03-13] MEDS: MULTIVITAMINS/MINERALS THERAPEUTIC TAB PO SCH (08:34)
[2017-03-13 08:51] LABS: BICARBONATE 21.6 MEQ/L (21.0-32.0); MAGNESIUM 1.6 MG/DL (1.5-2.5); POTASSIUM 3.3 MEQ/L (3.5-5.1); TOTAL BILIRUBIN ADULT 0.9 MG/DL (0.2-1.0)
[2017-03-13 09:00] LABS: CALCIUM-PROTEIN CORRECTED 6.9 MG/DL (8.5-10.1)
[2017-03-13] MEDS ORDERED: SODIUM CHLORIDE 0.9% FLUSH 10 ML FLUSH IV FLUSH SCH (09:00)
--- NOTE | 2017-03-13 09:40 | HHI.FPPN ---
Subjective Remarks Patient seen and examined this morning by Medical Team. No acute events overnight with VSS. Patient is currently complaining of R knee pain that is sharp in nature. He reports the knee is "weak," but does not catch or give way. His only other complaint is a mild headache, but otherwise has no complaints. He denies any fevers, chills, SOB, chest pain, NVD, ABD pain, or calf tenderness. Nursing staff reports patient has been calm and has not required Ativan via the CIWA protocol. Objective Vitals Vital Signs Date Time Temp Pulse Resp B/P Pulse Ox O2 Delivery O2 Flow Rate FiO2 03/13/17 08:00 98.0 104 20 141/86 98 03/13/17 04:00 97.7 91 18 141/85 98 03/13/17 01:00 91 03/13/17 00:55 97.4 86 19 128/84 100 03/13/17 00:05 90 20 107/70 97 03/13/17 00:00 99 20 102/70 Room Air 03/12/17 23:00 98 23 105/66 Room Air 03/12/17 22:59 97 21 03/12/17 22:00 98 22 112/71 Room Air 03/12/17 21:45 99.0 98 20 119/74 97 Room Air 03/12/17 20:30 108 18 118/79 97 Room Air 03/12/17 19:58 102.3 125 24 126/83 98 Room Air 03/12/17 19:00 115 22 115/77 99 Room Air 03/12/17 17:08 125 21 127/78 98 Room Air 03/12/17 15:58 137 20 87/56 98 Room Air 03/12/17 15:37 99.6 149 20 84/58 98 Room Air I/O 03/12/17 03/12/17 03/12/17 03/13/17 03/13/17 03/13/17 06:59 14:59 22:59 06:59 14:59 22:59 Intake Total 744 ml Output Total 800 ml Balance -56 ml Intake Oral 140 ml IV Total 604 ml Output Urine Total 800 ml # Bowel Movements 0 Result Diagram: 03/13/1715 03/13/17614 Objective Remarks GENERAL: Well-nourished, well-developed male sitting in bed being assisted by project technician prior to evaluation. Currently in no acute distress. SKIN: Warm and dry. No rash. HEENT: Atraumatic, normocephalic with EOMI. MMM. No rhinorrhea. CARDIOVASCULAR: Regular rate and rhythm without obvious murmurs, gallops, or rubs. RESPIRATORY: Clear to auscultation bilaterally with no CRW. No increased work of breathing. GASTROINTESTINAL: Abdomen soft, non-tender, nondistended with positive bowel sounds. No masses appreciated. MUSCULOSKELETAL: No cyanosis or edema. Strength grossly WNL Left lower extremity: Left knee with effusion, mild warmth, and no erythema. Bony anatomy appreciated on palpation without obvious deformity. Joint laxity. Pain on the medial and lateral joint lines of the knee. Patient refusing to flex knee due to pain. Posterior/anterior Arelis's test unable to be evaluated. NEURO/PSYCH: Afocal. Awake, alert, and oriented x3. Motor and sensory grossly within normal limits. No tremor. Normal speech and judgment. Normal interaction with examiners. A/P Assessment and Plan 52 year old male presents after presyncopal versus syncopal episodes with knee and back/neck injuries from fall, significant alcohol abuse with history of alcohol withdrawal seizures, leukocytosis, fever, tachycardia, hypotension responsive to fluid boluses. Discharge Planning Pending clinical course with follow-up echocardiogram, EEG, and pending the blood cultures. Problem List: (1) SIRS (systemic inflammatory response syndrome) Status: Acute Plan: Fever 102.3, tachycardic, respiratory rate up to 22, WBC 15.1. Lactic acid normal. Chest x-ray and urinalysis normal. No obvious soft tissue infections. No signs of meningitis. Initially presented with hypotension and tachycardia, but resolved with IV fluids. Has acute kidney injury. CBC: WBC 11.9, down trending Blood cultures: No growth 1 day Medications: Normal saline at 115 milliliters per hour Zosyn every 6 hours (2) Syncope Status: Acute Plan: Possible syncope versus presyncope versus seizure. History of alcohol withdrawal seizures in the past. Did not have reported convulsions, tongue biting, loss of stool or urine. Not sure if he ever actually blacked out. - ECHO: Pending - EEG: Pending - Seizure precautions - Keppra level: Pending - Continue Keppra from home - Telemetry (3) Macrocytic anemia Status: Chronic Plan: hemoglobin low at 11.4, MCV 103.0. Possibly effect of alcohol. - Vitamin B12: Pending - Folate: Pending - Counseling on alcohol abuse (4) Acute kidney injury Status: Acute Plan: Presume acute kidney injury with BUN 51, Cr 2.34 at admission. - Monitor function, improving - Avoid nephrotoxic agents - Avoid IV contrast if possible - Avoid NSAIDs - Renal ultrasound if not improving - Renal consult if not improving - Monitor electrolytes Medications: Normal saline at 115 milliliters per hour (5) Alcoholism /alcohol abuse Status: Chronic Plan: History of alcoholism, had fall at home, unclear whether related to an alcohol withdrawal seizure. Had 4 alcohol withdrawal seizures in the past. - Counseling on alcohol abuse - CIWA protocol, scores ranging from 1-13 with 2 mg of Ativan given over the last 24 hours - MV, thiamine, folic acid - Ativan PRN for withdrawal symptoms (6) Dehydration Status: Acute Plan: Initially with tachycardia, low blood pressures, elevated lactic acid. Significantly improved after fluid boluses in ED. - Continue NS at maintenance. - Monitor hydration status. (7) Hypomagnesemia Status: Resolved Plan: - Replaced in ED -Resolved 03/13 (8) Hypocalcemia Status: Resolved Plan: Severe hypocalcemia - Given calcium gluconate in ED - Albumin corrected calcium: 8.1 -Continue to monitor (9) Knee effusion, left Status: Acute Plan: Trauma effusion of the knee, pain with flexion, positive ballottement test, no obvious joint laxities or deformities. Negative x-ray for acute fracture. Had twisting motion of knee with fall. - Pain management: Avoid NSAIDs. Tylenol for mild pain, [place] for more severe pain. - Activity modification - Ice/heat applications - MRI as outpatient if not resolving to assess for ligament/tendon injury (10) Nutrition, metabolism, and development symptoms Status: Acute Plan: - Renal diet - Hypovolemic hyponatremia, receiving IV fluids - Acute kidney injury, avoid nephrotoxic agents - Monitor electrolytes regularly and replace - Severe hypocalcemia, replace and monitor - crew lead for electrolyte abnormalities - IVF NS at maintenance, adjust as needed (11) No contraindication to deep vein thrombosis (DVT) prophylaxis Status: Acute Plan: Heparin 5000 units tid Bryan Prabhakar MD R2 Mar 13, 2017 09:40
[2017-03-13] MEDS ORDERED: POTASSIUM CHLORIDE 10 MEQ CONTROLLED RELEASE TAB PO ONE (10:00)
[2017-03-13] MEDS ORDERED: NALOXONE HCL 0.4 MG/ML AMP IV PRN (17:45)
[2017-03-13] MEDS ORDERED: ACETAMINOPHEN 325 MG TAB PO PRN (17:45)
--- NOTE | 2017-03-13 17:57 | ECHRPT ---
Indication: SYNCOPE CONCLUSIONS Technically difficult studyIn limited views, the left ventricular systolic function appears normal w ith an EF of 55-60%. There was limited left ventricular wall motion assessment due to poor endocardial visualization. Doppler parameters are consistent with impaired left ventricular relaxtion (grade 1 diastolic dysfun ction). Trace mitral valve regurgitation. There is trace tricuspid valve regurgitation. BP: 141 / 85 HR: 91 Rhythm: Sinus MEASUREMENTS (Male / Female) Normal Values Technical Quality:Fair 2D ECHO LV Diastolic Diameter PLAX 5.3 cm 4.2 - 5.9 / 3.9 - 5.3 cm LV Systolic Diameter PLAX 3.6 cm IVS Diastolic Thickness 0.8 cm 0.6 - 1.0 / 0.6 - 0.9 cm LVPW Diastolic Thickness 0.8 cm 0.6 - 1.0 / 0.6 - 0.9 cm LV Relative Wall Thickness 0.3 LVOT Diameter 2.4 cm Aortic Root Diameter 3.5 cm LA Systolic Diameter LX 2.3 cm 3.0 - 4.0 / 2.7 - 3.8 cm M-MODE AV Cusp Separation MM 2.2 cm DOPPLER AV Peak Velocity 131.0 cm/s AV Peak Gradient 6.9 mmHg AV Mean Gradient 4.0 mmHg AV Velocity Time Integral 18.9 cm LVOT Peak Velocity 89.5 cm/s LVOT Peak Gradient 3.2 mmHg LVOT Velocity Time Integral 13.3 cm LVOT Cardiac Index 3026.2 cm/minm AV Area Cont Eq vti 3.2 cm AV Area Cont Eq pk 3.1 cm Mitral E Point Velocity 72.6 cm/s Mitral A Point Velocity 98.2 cm/s Mitral E to A Ratio 0.7 LV E' Lateral Velocity 8.1 cm/s Mitral E to LV E' Lateral Ratio 9.0 LV E' Septal Velocity 4.1 cm/s Mitral E to LV E' Septal Ratio 17.8 TR Peak Velocity 258.0 cm/s TR Peak Gradient 26.6 mmHg PV Peak Velocity 78.2 cm/s PV Peak Gradient 2.4 mmHg FINDINGS LEFT VENTRICLE Normal left ventricular size. Wall thickness is normal. In limited views, the left ventricular systolic function appears normal with an EF of 55-60% There was limited left ventricular wall motion assessment due to poor endocardial visualization. Doppler parameters are consistent with impaired left ventricular relaxtion (grade 1 diastolic dysfun ction). RIGHT VENTRICLE The right ventricular size is normal. LEFT ATRIUM The left atrial size is normal. RIGHT ATRIUM The right atrial size is normal. ATRIAL SEPTUM The interatrial septum not well visualized. AORTA The aortic root and proximal ascending aorta are not well visualized. MITRAL VALVE Structurally normal mitral valve. Trace mitral valve regurgitation. No mitral valve stenosis. AORTIC VALVE The aortic valve is not well visualized however the valve moves well. No aortic valve regurgitation. No aortic valve stenosis. TRICUSPID VALVE Structurally normal tricuspid valve. There is trace tricuspid valve regurgitation. Normal estimated pulmonary pressures. PULMONARY VALVE The pulmonary valve is not well visualized. VESSELS The inferior vena cava was not well visualized. PERICARDIUM No pericardial effusion. Chencho Mejias DO (Electronically Signed) Final Date:13 March 2017 17:56
--- NOTE | 2017-03-13 18:01 | MG ---
cc: SCOT COHN MD Lab No: [id number] Date: 03/13/17 Age: Sex: M Race: Falling, syncopal episode. Heparin Tylenol A 9 Hz 50-60 microvolt symmetric posterior rhythm is seen. The recording overall is synchronous and symmetric. No hemisphere asymmetry is noted. Occasional movement artifact is noted. No epileptiform or seizure activity is seen. Hyperventilation was performed without significant change in the background. Photic stimulation was performed without significant posterior driving. IMPRESSION Normal awake EEG. No evidence for a focal or diffuse abnormality MD SERENA Fletcher/ /5:32 PM /5:53 PM
--- NOTE | 2017-03-13 18:10 | HHI.PR ---
Addendum to Inpatient Note Addendum Reason: Additional Documentation Additional Information S: Medical team paged by nursing staff for acute increase in left knee pain. Staff states that patient was refused to flex the knee during physical therapy due to pain. Patient also experienced fever of 100.5 this afternoon with tachycardia into the 120s. Patient reports that pain is 10/10 and "comes and goes." He is able to bear weight on his left leg with the assistance of his walker to ambulate to the restroom. He states the pain is worsened with any type of active movement, but is uncomfortable at rest. O: Vitals: 99.6, 119 bpm, respiratory rate 20, 137/86, 98% on room air GENERAL: Thin appearing 52-year-old male lying in bed in no acute distress watching TV. SKIN: Warm and dry. No rash. HEENT: Atraumatic, normocephalic with EOMI. MMM. No rhinorrhea. No visible JVD or lymphadenopathy. CARDIOVASCULAR: Warm and well perfused. RESPIRATORY: Normal respiratory effort. GASTROINTESTINAL: Abdomen nondistended. MUSCULOSKELETAL: Strength grossly WNL. Left lower extremity: No erythema or skin changes noted on inspection. Knee joint warm to the touch, however not increased compared to right knee or other joints. Effusion of left knee present, not increased from prior exams. Patient refuses to flex knee for proper evaluation including anterior/posterior drawer test, patellar grind test, and Arelis's test. 2+ popliteal pulse palpated as well as TP and PT pulses. Range of motion at the ankle and hip within normal limits. NEURO/PSYCH: Afocal. Awake, alert, and oriented x3. Normal speech and interaction with the examiner A: Mr. Zambrano is a 52 year old male presents after presyncopal versus syncopal episodes with knee and back/neck injuries from fall, significant alcohol abuse with history of alcohol withdrawal seizures, leukocytosis, fever, tachycardia, hypotension responsive to fluid boluses. Currently presenting with increased left knee pain. P: 1. Left knee pain with effusion Differential diagnoses: Structural left knee damage s/p fall versus left knee sprain versus ruptured Martinez cyst versus septic joint Pain regimen ordered: Tylenol for pain 1-2, Roxicodone 10 mg for pain 3-5, Roxicodone 10 mg for pain 6-10 (Roxicodone ordered to decrease acetaminophen daily dose) Tylenol when necessary for fever Instructed nursing staff to draw any blood cultures with new fever Instructed nursing staff to examine left knee for increasing erythema or warmth with vital sign checks, contact M.[email or web address]. with any acute changes Continue Bryan Zamudio MD R2 Mar 13, 2017 18:10
[2017-03-14] VITALS (7 sets, daily range): BP systolic 127–143; BP diastolic 80–88; PULSE 86–112; RESP 16–18; TEMP 97.9–99; O2SAT 95–98
[2017-03-14] MEDS: SODIUM CHLOR 0.9% 1000 ML INJ 1,000 ML IV SCH ×3 (02:56→15:31)
[2017-03-14] MEDS: PIPERACIL-TAZO 4.5 GM PREMIX 100 ML IV SCH ×3 (04:41→15:30)
[2017-03-14] MEDS: HEPARIN SODIUM - SQ 10,000 UNITS/ML VIAL SQ SCH ×2 (04:41→13:31)
[2017-03-14] MEDS: FOLIC ACID 1 MG TAB PO SCH (08:20)
[2017-03-14] MEDS: MULTIVITAMINS/MINERALS THERAPEUTIC TAB PO SCH (08:20)
[2017-03-14] MEDS: levETIRAcetam 500 MG TAB PO SCH ×2 (08:20→22:24)
[2017-03-14] MEDS: THIAMINE HCL 100 MG TAB PO SCH (08:20)
[2017-03-14] MEDS: PANTOPRAZOLE SOD 20 MG DELAYED RELEASE TAB PO SCH (08:20)
[2017-03-14 11:18] LABS: HEMATOCRIT 27.9 % (39.0-51.0); MEAN CELL VOLUME 102.3 FL (80.0-100.0); MEAN CORPUSCULAR HEMOGLOBIN 35.5 PG (27.0-34.0); MEAN CORPUSCULAR HGB CONC 34.7 % (32.0-36.0); PLATELET COUNT 252 TH/MM3 (150-450); RED BLOOD COUNT 2.73 MIL/MM3 (4.50-5.90); RED CELL DISTRIBUTION WIDTH 16.7 % (11.6-17.2); REVIEW FLAG FINAL; WHITE BLOOD COUNT 13.2 TH/MM3 (4.0-11.0)
[2017-03-14 12:05] LABS: ANION GAP 10 MEQ/L (5-15); BICARBONATE 21.1 MEQ/L (21.0-32.0); BLOOD UREA NITROGEN 21 MG/DL (7-18); CHLORIDE 102 MEQ/L (98-107); GLOMERULAR FILTRATION RATE 70 ML/MIN (>89); SODIUM (NA) 133 MEQ/L (136-145)
[2017-03-14 12:31] LABS: CALCIUM-PROTEIN CORRECTED 7.1 MG/DL (8.5-10.1); POTASSIUM 2.9 MEQ/L (3.5-5.1)
[2017-03-14] MEDS ORDERED: POTASSIUM PHOSPHATE INJ 30 MMOL in SODIUM CHLOR 0.9% 250 ML INJ 250 ML IV ONE (13:45)
--- NOTE | 2017-03-14 14:14 | HHI.FPPN ---
Subjective Remarks Patient seen and examined this morning by medical team. No acute events overnight. Patient with temperature of 100.5 and sustained tachycardia overnight. Patient continues to report sharp left knee pain that is 10/10 on the pain scale. He continues to refuse physical therapy due to pain exacerbated with movement. Per nursing staff, patient had one episode of fecal incontinence yesterday afternoon. Otherwise he has no complaints and denies any chest pain, shortness of breath, N/V, abdominal pain, or calf tenderness. (Bryan Prabhakar MD R2) Objective Vitals Vital Signs Date Time Temp Pulse Resp B/P Pulse Ox O2 Delivery O2 Flow Rate FiO2 03/14/17 12:00 98.7 98 18 136/88 98 03/14/17 08:00 97.9 93 18 128/81 96 03/14/17 04:00 98.6 108 16 135/88 95 03/14/17 00:00 98.2 112 18 127/84 96 03/13/17 20:00 99.4 118 18 137/89 98 03/13/17 20:00 120 03/13/17 16:00 99.6 119 20 137/86 98 I/O 03/13/17 03/13/17 03/13/17 03/14/17 03/14/17 03/14/17 06:59 14:59 22:59 06:59 14:59 22:59 Intake Total 744 ml 480 ml 902 ml Output Total 800 ml 850 ml 300 ml 400 ml Balance -56 ml -370 ml 602 ml -400 ml Intake Oral 140 ml 480 ml IV Total 604 ml 902 ml Output Urine Total 800 ml 850 ml 300 ml 400 ml # Bowel Movements 0 3 1 (Bryan Prabhakar MD R2) Result Diagram: 03/14/17 1044 03/14/17 1044 Objective Remarks GENERAL: Well-nourished, well-developed male sitting in bed being assisted by maintenance parts technician prior to evaluation. Currently in no acute distress. SKIN: Warm and dry. No rash. HEENT: Atraumatic, normocephalic with EOMI. MMM. No rhinorrhea. CARDIOVASCULAR: Regular rate and rhythm without obvious murmurs, gallops, or rubs. RESPIRATORY: Clear to auscultation bilaterally with no CRW. No increased work of breathing. GASTROINTESTINAL: Abdomen soft, non-tender, nondistended with positive bowel sounds. No masses appreciated. MUSCULOSKELETAL: No cyanosis or edema. Strength grossly WNL Left lower extremity: No erythema or skin changes noted on inspection. Knee joint warm to the touch, however not increased compared to right knee or other joints. Effusion of left knee present, not increased from prior exams. Patient refuses to flex knee for proper evaluation including anterior/posterior drawer test, patellar grind test, and Arelis's test. 2+ popliteal pulse palpated as well as TP and PT pulses. Range of motion at the ankle and hip within normal limits. NEURO/PSYCH: Afocal. Awake, alert, and oriented x3. Motor and sensory grossly within normal limits. No tremor. Normal speech and judgment. Normal interaction with examiners. (Bryan Prabhakar MD R2) A/P Assessment and Plan 52 year old male presents after presyncopal versus syncopal episodes with knee and back/neck injuries from fall, significant alcohol abuse with history of alcohol withdrawal seizures, leukocytosis, fever, tachycardia, hypotension responsive to fluid boluses. Discharge Planning Pending clinical course with follow-up knee joint aspiration results for increased pain. (Bryan Prabhakar MD R2) Assessment and Plan Patient seen and examined. Case reviewed and discussed with the resident team. Agree with plan of care as discussed with me and documented in the resident note. (Nixon Kern MD) Problem List: (1) Knee effusion, left Status: Acute Plan: Trauma effusion of the knee, pain with flexion, positive ballottement test, no obvious joint laxities or deformities. Negative x-ray for acute fracture. Had twisting motion of knee with fall. - Pain management: Avoid NSAIDs. Tylenol for mild pain, [place] for more severe pain. - Activity modification - Ice/heat applications CRP: 29 Consult orthopedic surgery for joint aspiration Orders placed for synovial fluid culture and Gram stain, crystals, cell count, glucose, and total protein (2) SIRS (systemic inflammatory response syndrome) Status: Acute Plan: Fever 102.3, tachycardic, respiratory rate up to 22, WBC 15.1. Lactic acid normal. Chest x-ray and urinalysis normal. No obvious soft tissue infections. No signs of meningitis. Initially presented with hypotension and tachycardia, but resolved with IV fluids. Has acute kidney injury. CBC: WBC 13.2 Blood cultures: No growth 2 days Medications: Normal saline at 115 milliliters per hour Zosyn every 6 hours Tylenol when necessary for fever (3) Syncope Status: Acute Plan: Possible syncope versus presyncope versus seizure. History of alcohol withdrawal seizures in the past. Did not have reported convulsions, tongue biting, loss of stool or urine. Not sure if he ever actually blacked out. - ECHO: Ejection fraction of 55-60%. Poor visualization of the left ventricular wall. Doppler parameters consistent with impaired left ventricular relaxation, grade 1 diastolic dysfunction. Trace mitral valve regurgitation. Trace tricuspid valve regurgitation. - EEG: Normal awake EEG. No evidence of focal or diffuse abnormality. - Seizure precautions - Keppra level: Pending - Continue Keppra from home - Telemetry (4) Macrocytic anemia Status: Chronic Plan: hemoglobin low at 11.4, MCV 103.0. Possibly effect of alcohol. - Vitamin B12: 738 - Folate: Greater than 20 - Counseling on alcohol abuse (5) Acute kidney injury Status: Resolved Plan: Presume acute kidney injury with BUN 51, Cr 2.34 at admission. - Monitor function, improving - Avoid nephrotoxic agents - Avoid IV contrast if possible - Avoid NSAIDs - Renal ultrasound if not improving - Renal consult if not improving - Monitor electrolytes Medications: Normal saline at 115 milliliters per hour (6) Alcoholism /alcohol abuse Status: Chronic Plan: History of alcoholism, had fall at home, unclear whether related to an alcohol withdrawal seizure. Had 4 alcohol withdrawal seizures in the past. - Counseling on alcohol abuse - [facility] protocol, scores ranging from 1-13 with 2 mg of Ativan given over the last 24 hours - MV, thiamine, folic acid - Ativan PRN for withdrawal symptoms (7) Dehydration Status: Acute Plan: Initially with tachycardia, low blood pressures, elevated lactic acid. Significantly improved after fluid boluses in ED. - Continue NS at maintenance. - Monitor hydration status. (8) Hypomagnesemia Status: Resolved Plan: - Replaced in ED - 1 g IV magnesium given on 03/14 (9) Hypocalcemia Status: Resolved Plan: Severe hypocalcemia - Given calcium gluconate in ED Calcium carbonate 500 mg daily - Continue to monitor (10) Nutrition, metabolism, and development symptoms Status: Acute Plan: - Renal diet - Hypovolemic hyponatremia, receiving IV fluids - Acute kidney injury, avoid nephrotoxic agents - Monitor electrolytes regularly and replace - Severe hypocalcemia, replace and monitor - library monitor for electrolyte abnormalities - IVF NS at maintenance, adjust as needed (11) No contraindication to deep vein thrombosis (DVT) prophylaxis Status: Acute Plan: Heparin 5000 units tid held due to joint aspiration (Bryan Prabhakar MD R2) Bryan Prabhakar MD R2 Mar 14, 2017 14:14 Nixon Kern MD Mar 14, 2017 16:19
[2017-03-14] MEDS ORDERED: POTASSIUM CHLORIDE 10 MEQ CONTROLLED RELEASE TAB PO ONE (17:00)
[2017-03-14] MEDS ORDERED: MAGNESIUM SULFATE 1 GM PREMIX 100 ML IV ONE (17:45)
[2017-03-14] MEDS: CALCIUM CARBONATE 1.25 GM (CA 500 MG) TAB PO SCH (18:26)
[2017-03-14 23:21] LABS: MAGNESIUM 1.5 MG/DL (1.5-2.5); POTASSIUM 3.9 MEQ/L (3.5-5.1)
[2017-03-15] VITALS (9 sets, daily range): BP systolic 140–163; BP diastolic 82–99; PULSE 78–95; RESP 16–20; TEMP 98–99.5; O2SAT 96–98
[2017-03-15] MEDS: PIPERACIL-TAZO 4.5 GM PREMIX 100 ML IV SCH ×5 (00:38→21:43)
[2017-03-15] MEDS: SODIUM CHLOR 0.9% 1000 ML INJ 1,000 ML IV SCH ×3 (04:27→15:57)
[2017-03-15 09:27] LABS: HEMATOCRIT 29.6 % (39.0-51.0); MEAN CELL VOLUME 105.5 FL (80.0-100.0); MEAN CORPUSCULAR HEMOGLOBIN 35.2 PG (27.0-34.0); MEAN CORPUSCULAR HGB CONC 33.4 % (32.0-36.0); PLATELET COUNT 283 TH/MM3 (150-450); RED BLOOD COUNT 2.81 MIL/MM3 (4.50-5.90); RED CELL DISTRIBUTION WIDTH 17.1 % (11.6-17.2); REVIEW FLAG FINAL; WHITE BLOOD COUNT 10.8 TH/MM3 (4.0-11.0)
[2017-03-15] MEDS: MULTIVITAMINS/MINERALS THERAPEUTIC TAB PO SCH (09:39)
[2017-03-15] MEDS: PANTOPRAZOLE SOD 20 MG DELAYED RELEASE TAB PO SCH (09:39)
[2017-03-15] MEDS: THIAMINE HCL 100 MG TAB PO SCH (09:39)
[2017-03-15] MEDS: CALCIUM CARBONATE 1.25 GM (CA 500 MG) TAB PO SCH (09:39)
[2017-03-15] MEDS: levETIRAcetam 500 MG TAB PO SCH ×2 (09:39→21:43)
[2017-03-15] MEDS: FOLIC ACID 1 MG TAB PO SCH (09:39)
[2017-03-15 09:51] LABS: BICARBONATE 20.1 MEQ/L (21.0-32.0); POTASSIUM 3.9 MEQ/L (3.5-5.1)
--- NOTE | 2017-03-15 14:25 | PD.CONS ---
cc: Noman Morillo Jr., MD HPI Service Orthopedic Surgeons Consult Requested By Primary Care Physician [facility] Admission Diagnosis severe sepsis, acute kidney injury, alcohol withdrawal Diagnoses: Chief Complaint: left knee effusion History of Present Illness 52-year-old male with significantly complicated past medical history including alcoholism presented to an emergency department after a fall from a likely syncopal episode. His roommate witnessed the incident and did not report any convulsions. There are no fall he injured his knee. In addition to other complaints present to the emergency department and pinning of left knee pain. He denies any mechanical symptoms or knee instability. c/o left knee pain and difficulty with weightbearing. X-ray taken the emergency department reveal moderate to severe degenerative osteoarthritis. Currently patient's pain is dull , 7 out of 10, exacerbated by any range of motion, relieved at rest and with IV pain medicine, nonradiating, not associated with any paresthesia and numbness to the right lower extremity. Denies fever or chills. ROS - General Review of Systems Constitutional: DENIES: Diaphoretic episodes, Fatigue, Fever, Weight gain, Chills, Change in appetite, Night Sweats Endocrine: DENIES: Polydipsia, Polyuria, Polyphagia Eyes: DENIES: Blurred vision, Eye pain, Vision loss, Double Vision Ears, nose, mouth, throat: DENIES: Nasal discharge, Throat pain Respiratory: DENIES: Cough, Wheezing, Sputum production, Shortness of breath Cardiovascular: DENIES: Chest pain, Palpitations, Dyspnea on Exertion, Lower Extremity Edema, Claudication Gastrointestinal: DENIES: Abdominal pain, Black stools, Bloody stools, Constipation, Diarrhea, Nausea, Vomiting Genitourinary: DENIES: Urgency, Hematuria, Dysuria Musculoskeletal: COMPLAINS OF: Joint pain, Stiffness, Joint Swelling, Back pain , Neck pain, DENIES: Muscle aches Integumentary: DENIES: Rash Hematologic/lymphatic: DENIES: Lymphadenopathy Immunologic/allergic: DENIES: Eczema Neurologic: DENIES: Localized weakness, Seizures, Poor Balance Psychiatric: DENIES: Anxiety, Confusion, Mood changes, Depression, Hallucinations, Agitation [facility] Past Family Social History Past Medical History None reported Past Surgical History None reported Reported Medications Reported Meds & Active Scripts Active Reported [bp med unknown] Prilosec (Omeprazole Magnesium) 20 Mg Tab 20 Mg PO DAILY Keppra (Levetiracetam) 500 Mg Tab 500 Mg PO BID Allergies: Coded Allergies: No Known Allergies (Verified , 03/12/17) Active Ordered Medications Inpatient Medications Acetaminophen 1000 mg 1,000 mg ONCE ONCE PO Last administered on 03/12/17 20: 15; Start 03/12/17 at 20:15; Stop 03/12/17 at 20:16; Status DC Calcium Gluconate/ Sodium Chloride (Calcium Gluconate Inj/NS Inj) 110 ml @ 110 mls/hr ONCE ONCE IV Last administered on 03/12/17 19:45; Start 03/12/17 at 19 :45; Stop 03/12/17 at 20:44; Status DC Clonidine (Catapres) 0.1 mg Q6H PRN PO SEE LABEL COMMENTS; Start 03/13/17 at 00 :00 Flumazenil (Romazicon Inj) 0.2 mg Q1M PRN IV PUSH SEE LABEL COMMENTS; Start at 00:00 Folic Acid (Folate) 1 mg DAILY PO ; Start 03/13/17 at 09:00; Stop 03/18/17 at 08 :59 Heparin Sodium (Porcine) (Heparin Inj) 5,000 units Q8H SQ ; Start 03/13/17 at 06 :00 Lorazepam (Ativan Inj) 2 mg Q15M PRN IV PUSH CIWA > 20; Start 03/13/17 at 00:00 Lorazepam (Ativan) 2 mg Q2H PRN PO CIWA 11-14; Start 03/13/17 at 00:00 Lorazepam 2 mg 2 mg Q15M PRN IV PUSH CIWA > 20; Start 03/12/17 at 17:30; Stop 03/13/17 at 00:00; Status DC Magnesium Sulfate/ Dextrose (Magnesium Sulfate 1 Gm Premix) 100 ml @ 100 mls/ hr Q1H IV Last administered on 03/12/17 21:10; Start 03/12/17 at 20:15; Stop 03/12/17 at 22:14; Status DC Multivitamins/ Minerals Therapeutic (Theragran M Tab) 1 tab DAILY PO ; Start at 09:00; Stop 03/18/17 at 08:59 Ondansetron HCl (Zofran Inj) 4 mg Q6H PRN IV NAUSEA OR VOMITING; Start at 00:00 Piperacillin Sod/ Tazobactam Sod 100 ml @ 200 mls/hr Q6H IV ; Start 03/13/17 at 04:30 Sodium Chloride (NS 1000 ml Inj) 1,000 ml @ 115 mls/hr Q8H42M IV Last administered on 03/12/17t 23:55; Start 03/12/17 at 23:46 Sodium Chloride (NS Flush) 2 ml UNSCH PRN IV FLUSH FLUSH AFTER USING IV ACCESS ; Start 03/12/17 at 23:00; Stop 03/13/17 at 00:00; Status DC Sodium Chloride 2 ml 2 ml BID IV FLUSH ; Start 03/13/17 at 09:00; Stop 03/13/17 at 09:00; Status DC Thiamine HCl (Vitamin B1) 100 mg DAILY PO ; Start 03/13/17 at 09:00 Family History Uncertain Social History Smoked 3 PPD, quit 3.5 years ago Significant daily alcohol use Lives with roommate Not currently working Gets around well at home per his report Reports he is independent in functioning Past Family Social History Allergies: Coded Allergies: No Known Allergies (Verified , 03/12/17) Active Ordered Medications Current Medications Medications (Trade) Dose Ordered Sig/Daphne Route Start Time Stop Time Status Last Admin Piperacillin Sod/ Tazobactam Sod 100 ml @ 200 mls/hr Q6H IV 03/13/17 04:30 03/15/17 10:17 (NS 1000 ml Inj) 1,000 ml @ 115 mls/hr Q8H42M IV 03/12/17 23:46 03/15/17 04:27 (Folate) 1 mg DAILY PO 03/13/17 09:00 03/18/17 08:59 03/15/17 09:39 (Vitamin B1) 100 mg DAILY PO 03/13/17 09:00 03/15/17 09:39 (Theragran M Tab) 1 tab DAILY PO 03/13/17 09:00 03/18/17 08:59 03/15/17 09:39 (Zofran Inj) 4 mg Q6H PRN IV 03/13/17 00:00 (Catapres) 0.1 mg Q6H PRN PO 03/13/17 00:00 (Romazicon Inj) 0.2 mg Q1M PRN IV PUSH 03/13/17 00:00 (Ativan) 1 mg Q4H PRN PO 03/13/17 00:00 03/13/17 20:44 (Ativan Inj) 1 mg Q4H PRN IV PUSH 03/13/17 00:00 (Ativan) 2 mg Q2H PRN PO 03/13/17 00:00 (Ativan Inj) 2 mg Q2H PRN IV PUSH 03/13/17 00:00 (Ativan Inj) 2 mg Q1H PRN IV PUSH 03/13/17 00:00 (Ativan Inj) 2 mg Q15M PRN IV PUSH 03/13/17 00:00 (Heparin Inj) 5,000 units Q8H SQ 03/13/17 06:00 Hold 03/14/17 13:31 (Keppra) 500 mg BID PO 03/13/17 09:00 03/15/17 09:39 (Protonix) 20 mg DAILY PO 03/13/17 02:00 03/15/17 09:39 (Tylenol) 650 mg Q6H PRN PO 03/13/17 17:45 (Roxicodone) 10 mg Q4H PRN PO 03/13/17 17:45 03/15/17 13:06 (Roxicodone) 5 mg Q4H PRN PO 03/13/17 17:45 (Narcan Inj) 0.4 mg UNSCH PRN IV 03/13/17 17:45 (Oscal) 500 mg DAILY PO 03/14/17 18:00 03/15/17 09:39 Reported Meds & Active Scripts Active Reported [bp med unknown] Prilosec (Omeprazole Magnesium) 20 Mg Tab 20 Mg PO DAILY Keppra (Levetiracetam) 500 Mg Tab 500 Mg PO BID Physical Exam Vital Signs Vital Signs Date Time Temp Pulse Resp B/P Pulse Ox O2 Delivery O2 Flow Rate FiO2 03/15/17 12:04 98.6 86 16 141/84 97 03/15/17 09:34 78 03/15/17 08:04 98.0 86 16 152/89 98 03/15/17 04:00 99.5 88 16 140/88 97 03/15/17 00:00 98.2 88 18 148/82 97 03/14/17 20:00 99.0 94 16 143/83 97 03/14/17 16:00 98.0 92 18 135/80 96 Physical Exam Alert awake and oriented x 3. No acute distress. Head: NC/AT Neck: No pain with any range of motion and neck. No tenderness to palpation along posterior cervical elements Pulmonary: Normal respiratory effort. Bilateral upper extremity: No deformities. 2+ radial artery pulses. Good cap refill. Grossly neurovascular intact. RIGHT lower extremity: Neurovascularly intact, +EHL/FHL, + PT/DP pulses. Supple compartments. Negative Homans sign. LEFT lower extremity: Neurovascularly intact, moderate prepatella knee effusion. Intact skin. No erythema or cellulitis. Range of motion 10-60. + crepitus, TTP along MCL, 1+ eber, Stable to varus and valgus stress. +EHL/FHL , + PT/DP pulses. Supple compartments. Negative Homans sign. Laboratory Laboratory Tests Test 03/14/17 03/15/17 21:04 07:22 Potassium Level 3.9 3.9 Magnesium Level 1.5 White Blood Count 10.8 Red Blood Count 2.81 Hemoglobin 9.9 Hematocrit 29.6 Mean Corpuscular Volume 105.5 Mean Corpuscular Hemoglobin 35.2 Mean Corpuscular Hemoglobin 33.4 Concent Red Cell Distribution Width 17.1 Platelet Count 283 Mean Platelet Volume 8.5 Sodium Level 135 Chloride Level 102 Carbon Dioxide Level 20.1 Anion Gap 13 Blood Urea Nitrogen 14 Creatinine 0.76 Estimat Glomerular Filtration 107 Rate Random Glucose 69 Calcium Level 7.6 C-Reactive Protein 21.00 Date/Time Procedure Status Source Growth 03/12/17 20:45 Aerobic Blood Culture - Preliminary Resulted Blood Peripheral NO GROWTH IN 3 DAYS 03/12/17 20:45 Anaerobic Blood Culture - Preliminary Resulted Blood Peripheral NO GROWTH IN 3 DAYS Result Diagram: 03/15/17 0722 03/15/17 0722 Imaging Last 72 hours Impressions Lumbar Spine X-Ray 03/12/17 1740 Signed Impressions: Service Date/Time: Sunday, March 12, 2017 17:52 - CONCLUSION: 1. Mild scoliosis and lower lumbar predominant degenerative changes as above. 2. No fracture or subluxation. Juanpablo Berry MD Knee X-Ray 03/12/17 1740 Signed Impressions: Service Date/Time: Sunday, March 12, 2017 17:54 - CONCLUSION: Intact left knee. Small, nonspecific joint effusion and mild prepatellar soft tissue swelling. Juanpablo Berry MD Head CT 03/12/171721 Signed Impressions: Service Date/Time: Sunday, March 12, 2017 18:05 - CONCLUSION: Negative noncontrast head CT. Juanpablo Beryr MD Chest X-Ray 03/12/171721 Signed Impressions: Service Date/Time: Sunday, March 12, 2017 17:27 - CONCLUSION: No evidence of acute cardiopulmonary disease. Juanpablo Berry MD Assessment & Plan Assessment and Plan 52-year-old male with history of alcoholism and knee OA sustained a fall from a likely syncopal episodes presented with complaint of left knee pain. He is currently afebrile with normal WBC, He is grossly neurovascular intact, has a moderate knee effusion, tenderness palpation along the MCL and has 1+ eber but otherwise good range of motion. He does have known chronic knee DJD (s/p knee menistectomy in the past), therefore this could be a traumatic exacerbation of his knee DJD vs knee ligament injury. There's no need for any surgical intervention at this time. I recommend a trial of PT with ROM and WBAT. MRI may be helpful but could be done as an outpatient. Physical therapy NSAIDS Weightbearing as tolerated, range of motion as tolerated. Follow-up 2 weeks outpatient. Noman Morillo Jr., MD Mar 15, 2017 14:25
--- NOTE | 2017-03-15 17:49 | HHI.FPPN ---
Subjective Remarks No acute events overnight. Patient is still unable to ambulate due to severe pain and left knee. Patient states that his pain in the left knee is equal to yesterday; 6 out of 10 pain encompassing over the entire knee. Patient denies any fever/chills. Patient denies any shortness of breath/chest pain/dizziness. Patient has been tolerating by mouth food and liquids, and has no other complaints at this time. Is any loss of consciousness or seizure-like activity overnight. (Danay Mcintyre MD R2) Objective Vitals Vital Signs Date Time Temp Pulse Resp B/P Pulse Ox O2 Delivery O2 Flow Rate FiO2 03/15/17 15:03 94 03/15/17 15:03 03/15/17 14:36 98 03/15/17 12:04 98.6 86 16 141/84 97 03/15/17 09:34 78 03/15/17 08:04 98.0 86 16 152/89 98 03/15/17 04:00 99.5 88 16 140/88 97 03/15/17 00:00 98.2 88 18 148/82 97 03/14/17 20:00 99.0 94 16 143/83 97 I/O 03/14/17 03/14/17 03/14/17 03/15/17 03/15/17 03/15/17 06:59 14:59 22:59 06:59 14:59 22:59 Intake Total 360 ml 467 ml 668 ml 805 ml Output Total 400 ml 1000 ml 300 ml 700 ml Balance -400 ml -640 ml 167 ml -32 ml 805 ml Intake Oral 360 ml 240 ml 240 ml IV Total 227 ml 428 ml 805 ml Output Urine Total 400 ml 1000 ml 300 ml 700 ml # Bowel Movements 2 0 0 (Danay Mcintyre MD R2) Result Diagram: 03/15/1772103/15/17721 Objective Remarks GENERAL: Well-nourished, well-developed male sitting in bed being assisted by r and d lab technician prior to evaluation. Currently in no acute distress. SKIN: Warm and dry. No rash. HEENT: Atraumatic, normocephalic with EOMI. MMM. No rhinorrhea. CARDIOVASCULAR: Regular rate and rhythm without obvious murmurs, gallops, or rubs. RESPIRATORY: Clear to auscultation bilaterally with no CRW. No increased work of breathing. GASTROINTESTINAL: Abdomen soft, non-tender, nondistended with positive bowel sounds. No masses appreciated. MUSCULOSKELETAL: No cyanosis or edema. Strength grossly WNL Left lower extremity: No erythema or skin changes noted on inspection. Knee joint warm to the touch, however not increased compared to right knee or other joints. Effusion of left knee present, not increased from prior exams. Patient refuses to flex knee for proper evaluation including anterior/posterior drawer test, patellar grind test, and Arelis's test. 2+ popliteal pulse palpated as well as TP and PT pulses. Range of motion at the ankle and hip within normal limits. NEURO/PSYCH: Afocal. Awake, alert, and oriented x3. Motor and sensory grossly within normal limits. No tremor. Normal speech and judgment. Normal interaction with examiners. (Danay Mcintyre MD R2) A/P Assessment and Plan Patient seen and examined. Case reviewed and discussed with the resident team. Agree with plan of care as discussed with me and documented in the resident note. Discharge Planning Pending clinical course with follow-up knee joint aspiration results for increased pain. (Danay Mcintyre MD R2) Assessment and Plan Medicine Attending note: Patient seen and examined. Case reviewed and discussed with resident team. Agree with plan of care is discussed with me and documented in the resident note. (Nixon Kern MD) Problem List: (1) Knee effusion, left Status: Acute Plan: Knee osteoarthritis sustained from a fall via syncopal events. Continues complain of left knee pain. Patient is afebrile with normal CBC. History of knee meniscal issues in the past. Differential includes traumatic exacerbation of meniscal tear versus knee ligament injury. - Orthopedic consult: Done. Recommends PT with R [facility] and WBAT with follow-up MRI as an outpatient. - PT plus NSAIDs plus weight-bearing as tolerated, range of motion as tolerated - Follow up 2 weeks with orthopedics/sports medicine/PCP as outpatient (2) SIRS (systemic inflammatory response syndrome) Status: Resolved Plan: initial: Fever 102.3, tachycardic, respiratory rate up to 22, WBC 15.1. Lactic acid normal. Chest x-ray and urinalysis normal. No obvious soft tissue infections. No signs of meningitis. Initially presented with hypotension and tachycardia, but resolved with IV fluids. Had acute kidney injury. CBC: WBC 110.8 Blood cultures: No growth 3 days Medications: Normal saline at 115 milliliters per hour Zosyn every 6 hours Tylenol when necessary for fever (3) Syncope Status: Acute Plan: Possible syncope versus presyncope versus seizure. History of alcohol withdrawal seizures in the past. Did not have reported convulsions, tongue biting, loss of stool or urine. Not sure if he ever actually blacked out. - ECHO: Ejection fraction of 55-60%. Poor visualization of the left ventricular wall. Doppler parameters consistent with impaired left ventricular relaxation, grade 1 diastolic dysfunction. Trace mitral valve regurgitation. Trace tricuspid valve regurgitation. - EEG: Normal awake EEG. No evidence of focal or diffuse abnormality. - Seizure precautions - Keppra level: 27.5 in therapeutic range - Continue Keppra from home - Telemetry (4) Macrocytic anemia Status: Chronic Plan: hemoglobin low at 11.4, MCV 103.0. Possibly effect of alcohol. - Vitamin B12: 738 - Folate: Greater than 20 - Counseling on alcohol abuse (5) Acute kidney injury Status: Resolved Plan: Presume acute kidney injury with BUN 51, Cr 2.34 at admission. - Monitor function, improving - Avoid nephrotoxic agents - Avoid IV contrast if possible - Avoid NSAIDs - Renal ultrasound if not improving - Renal consult if not improving - Monitor electrolytes Medications: Normal saline at 115 milliliters per hour (6) Alcoholism /alcohol abuse Status: Chronic Plan: History of alcoholism, had fall at home, unclear whether related to an alcohol withdrawal seizure. Had 4 alcohol withdrawal seizures in the past. - Counseling on alcohol abuse - CIWA protocol, scores ranging from 1-13 with 2 mg of Ativan given over the last 24 hours - MV, thiamine, folic acid - Ativan PRN for withdrawal symptoms (7) Dehydration Status: Acute Plan: Initially with tachycardia, low blood pressures, elevated lactic acid. Significantly improved after fluid boluses in ED. - Continue NS at maintenance. - Monitor hydration status. (8) Hypomagnesemia Status: Resolved Plan: - Replaced in ED - 1 g IV magnesium given on 03/14 (9) Hypocalcemia Status: Resolved Plan: Severe hypocalcemia - Given calcium gluconate in ED Calcium carbonate 500 mg daily - Continue to monitor (10) Nutrition, metabolism, and development symptoms Status: Acute Plan: - Renal diet - Hypovolemic hyponatremia, receiving IV fluids - Acute kidney injury, avoid nephrotoxic agents - Monitor electrolytes regularly and replace - Severe hypocalcemia, replace and monitor - cafeteria monitor for electrolyte abnormalities - IVF NS at maintenance, adjust as needed (11) No contraindication to deep vein thrombosis (DVT) prophylaxis Status: Acute Plan: Heparin 5000 units tid held due to joint aspiration (Danay Mcintyre MD R2) Danay Mcintyre MD R2 Mar 15, 2017 17:49 Nixon Kern MD Mar 16, 2017 11:33
[2017-03-16] VITALS: BP 148/98; PULSE 86; RESP 20; TEMP 98.3; O2SAT 95
[2017-03-16 04:00] VITALS: BP 150/95; PULSE 86; RESP 20; TEMP 98.3; O2SAT 98
[2017-03-16] MEDS: SODIUM CHLOR 0.9% 1000 ML INJ 1,000 ML IV SCH (04:55)
[2017-03-16] MEDS: PIPERACIL-TAZO 4.5 GM PREMIX 100 ML IV SCH (04:55)
[2017-03-16 07:41] VITALS: PULSE 106
[2017-03-16 07:53] VITALS: O2SAT 98
[2017-03-16 08:00] VITALS: BP 145/87; PULSE 86; RESP 20; TEMP 98.1; O2SAT 96
[2017-03-16] MEDS: MULTIVITAMINS/MINERALS THERAPEUTIC TAB PO SCH (08:49)
[2017-03-16] MEDS: FOLIC ACID 1 MG TAB PO SCH (08:49)
[2017-03-16] MEDS: THIAMINE HCL 100 MG TAB PO SCH (08:49)
[2017-03-16] MEDS: levETIRAcetam 500 MG TAB PO SCH (08:49)
[2017-03-16] MEDS: CALCIUM CARBONATE 1.25 GM (CA 500 MG) TAB PO SCH (08:49)
[2017-03-16] MEDS: PANTOPRAZOLE SOD 20 MG DELAYED RELEASE TAB PO SCH (08:49)
[2017-03-16] MEDS ORDERED: NAPR500T PO (08:56)
[2017-03-16] MEDS ORDERED: [UNRECOGNIZED DRUG - OTHER] (08:58)
--- NOTE | 2017-03-16 09:00 | HHI.DCPOC ---
Discharge Care Plan Diagnosis: (1) Knee effusion, left (2) Acute kidney injury (3) SIRS (systemic inflammatory response syndrome) Goals to Promote Your Health * To prevent worsening of your condition and complications * To maintain your health at the optimal level Directions to Meet Your Goals Take your medications as prescribed Follow your dietary instruction Follow activity as directed Keep your appointments as scheduled Take your immunizations and boosters as scheduled If your symptoms worsen call your PCP, if no PCP go to Urgent Care Center or Emergency Room Smoking is Dangerous to Your Health. Avoid second hand smoke Call the 24-hour hour crisis hotline for domestic abuse at Bryan Prabhakar MD R2 Mar 16, 2017 09:00
--- NOTE | 2017-03-16 09:04 | HHI.FPPN ---
Subjective Remarks Patient seen and examined this morning by medical team. No acute events overnight with vital signs stable. Patient still reports 7 out of 10 pain in his left knee, however effusion remained stable. Patient states that he would like to return home, but is worried about follow-up. He currently has no other complaints and denies any fevers, chills, shortness of breath, chest pain, NVD, abdominal pain, or calf tenderness. (Bryan Prabhakar MD R2) Objective Vitals Vital Signs Date Time Temp Pulse Resp B/P Pulse Ox O2 Delivery O2 Flow Rate FiO2 03/16/17 07:53 98 21 03/16/17 07:41 Room Air 03/16/17 07:41 106 03/16/17 04:00 98.3 86 20 150/95 98 03/16/17 00:00 98.3 86 20 148/98 95 03/16/17 00:00 Room Air 03/15/17 20:00 86 03/15/17 20:00 Room Air 03/15/17 20:00 98.4 89 20 163/99 96 03/15/17 16:02 99.3 95 16 152/90 96 03/15/17 15:03 94 03/15/17 15:03 03/15/17 14:36 98 03/15/17 12:04 98.6 86 16 141/84 97 03/15/17 09:34 78 I/O 03/15/17 03/15/17 03/15/17 03/16/17 03/16/17 03/16/17 07:00 15:00 23:00 07:00 15:00 23:00 Intake Total 668 ml 1185 ml 1127 ml 1087 ml Output Total 700 ml 700 ml 720 ml 300 ml Balance -32 ml 485 ml 407 ml 787 ml Intake Oral 240 ml 380 ml 240 ml 240 ml IV Total 428 ml 805 ml 887 ml 847 ml Output Urine Total 700 ml 700 ml 720 ml 300 ml # Voids 2 1 # Bowel Movements 0 1 (Bryan Prabhakar MD R2) Result Diagram: 03/15/1772103/15/17721 Objective Remarks GENERAL: Well-nourished, well-developed male lying in bed currently in no acute distress. SKIN: Warm and dry. No rash. HEENT: Atraumatic, normocephalic with EOMI. MMM. No rhinorrhea. CARDIOVASCULAR: Regular rate and rhythm without obvious murmurs, gallops, or rubs. RESPIRATORY: Clear to auscultation bilaterally with no CRW. No increased work of breathing. GASTROINTESTINAL: Abdomen soft, non-tender, nondistended with positive bowel sounds. No masses appreciated. MUSCULOSKELETAL: No cyanosis or edema. Strength grossly WNL Left lower extremity: No erythema or skin changes noted on inspection. Knee joint without warmth.. Effusion of left knee present, not increased from prior exams. Patient refuses to flex knee for proper evaluation including anterior/ posterior drawer test, patellar grind test, and Arelis's test. 2+ popliteal pulse palpated as well as TP and PT pulses. Range of motion at the ankle and hip within normal limits. Normal sensation throughout the lower extremity. NEURO/PSYCH: Afocal. Awake, alert, and oriented x3. Motor and sensory grossly within normal limits. No tremor. Normal speech and judgment. Normal interaction with examiners. (Bryan Prabhakar MD R2) A/P Assessment and Plan Patient seen and examined. Case reviewed and discussed with the resident team. Agree with plan of care as discussed with me and documented in the resident note. 52 year old male presents after presyncopal versus syncopal episodes with knee and back/neck injuries from fall, significant alcohol abuse with history of alcohol withdrawal seizures, leukocytosis, fever, tachycardia, hypotension responsive to fluid boluses. Patient with no apparent signs that he is septic. Left knee effusion likely due to structural injury status post fall. Discharge Planning Pending clinical course with follow-up knee joint aspiration results for increased pain. (Bryan Prabhakar MD R2) Problem List: (1) Knee effusion, left Status: Acute Plan: Knee osteoarthritis sustained from a fall via syncopal events. Continues complain of left knee pain. Patient is afebrile with normal CBC. History of knee meniscal issues in the past. Differential includes traumatic exacerbation of meniscal tear versus knee ligament injury. - Orthopedic consult: Recommends PT with R [facility] and WBAT with follow-up MRI as an outpatient. - PT plus NSAIDs plus weight-bearing as tolerated, range of motion as tolerated - [facility], per case management (2) SIRS (systemic inflammatory response syndrome) Status: Resolved Plan: initial: Fever 102.3, tachycardic, respiratory rate up to 22, WBC 15.1. Lactic acid normal. Chest x-ray and urinalysis normal. No obvious soft tissue infections. No signs of meningitis. Initially presented with hypotension and tachycardia, but resolved with IV fluids. Had acute kidney injury. CBC: WBC 10.8 Blood cultures: No growth 4 days Medications: Normal saline at 115 milliliters per hour Zosyn every 6 hours, discontinued (03/13-03/16) Tylenol when necessary for fever (3) Syncope Status: Acute Plan: Possible syncope versus presyncope versus seizure. History of alcohol withdrawal seizures in the past. Did not have reported convulsions, tongue biting, loss of stool or urine. Not sure if he ever actually blacked out. - ECHO: Ejection fraction of 55-60%. Poor visualization of the left ventricular wall. Doppler parameters consistent with impaired left ventricular relaxation, grade 1 diastolic dysfunction. Trace mitral valve regurgitation. Trace tricuspid valve regurgitation. - EEG: Normal awake EEG. No evidence of focal or diffuse abnormality. - Seizure precautions - Keppra level: 27.5 in therapeutic range - Continue Keppra from home - Telemetry (4) Macrocytic anemia Status: Chronic Plan: hemoglobin low at 11.4, MCV 103.0. Possibly effect of alcohol. Hemoglobin mildly downtrending, likely dilutional effect from fluids. - Vitamin B12: 738 - Folate: Greater than 20 - Counseling on alcohol abuse (5) Acute kidney injury Status: Resolved Plan: Presume acute kidney injury with BUN 51, Cr 2.34 at admission. - Monitor function, improving - Avoid nephrotoxic agents - Avoid IV contrast if possible - Avoid NSAIDs - Renal ultrasound if not improving - Renal consult if not improving - Monitor electrolytes Medications: Normal saline at 115 milliliters per hour (6) Alcoholism /alcohol abuse Status: Chronic Plan: History of alcoholism, had fall at home, unclear whether related to an alcohol withdrawal seizure. Had 4 alcohol withdrawal seizures in the past. - Counseling on alcohol abuse - CIWA protocol, scores ranging from 1-13 with 2 mg of Ativan given over the last 24 hours - MV, thiamine, folic acid - Ativan PRN for withdrawal symptoms (7) Dehydration Status: Acute Plan: Initially with tachycardia, low blood pressures, elevated lactic acid. Significantly improved after fluid boluses in ED. - Continue NS at maintenance. - Monitor hydration status. (8) Hypomagnesemia Status: Resolved Plan: - Replaced in ED - 1 g IV magnesium given on 03/14 (9) Hypocalcemia Status: Resolved Plan: Severe hypocalcemia - Given calcium gluconate in ED Calcium carbonate 500 mg daily - Continue to monitor (10) Nutrition, metabolism, and development symptoms Status: Acute Plan: - Renal diet - Hypovolemic hyponatremia, receiving IV fluids - Acute kidney injury, avoid nephrotoxic agents - Monitor electrolytes regularly and replace - Severe hypocalcemia, replace and monitor - machine cementer and folder for electrolyte abnormalities - IVF NS at maintenance, adjust as needed (11) No contraindication to deep vein thrombosis (DVT) prophylaxis Status: Acute Plan: Heparin 5000 units tid, discontinued on discharge (Bryan Prabhakar MD R2) Bryan Prabhakar MD R2 Mar 16, 2017 09:04 Nixon Kern MD Mar 16, 2017 11:34
[2017-03-16 09:26] LABS: BICARBONATE 22.8 MEQ/L (21.0-32.0); POTASSIUM 3.7 MEQ/L (3.5-5.1)
[2017-03-16 09:35] LABS: HEMATOCRIT 26.4 % (39.0-51.0); MEAN CELL VOLUME 104.3 FL (80.0-100.0); MEAN CORPUSCULAR HEMOGLOBIN 35.6 PG (27.0-34.0); MEAN CORPUSCULAR HGB CONC 34.1 % (32.0-36.0); PLATELET COUNT 284 TH/MM3 (150-450); RED BLOOD COUNT 2.53 MIL/MM3 (4.50-5.90); RED CELL DISTRIBUTION WIDTH 17.1 % (11.6-17.2); REVIEW FLAG FINAL; WHITE BLOOD COUNT 10.9 TH/MM3 (4.0-11.0)
--- NOTE | 2017-03-16 11:14 | HHI.FF ---
Face to Face Verification Diagnosis: (1) Knee effusion, left Physical Therapy Order: Evaluate and Treat, Improve ambulation, Strength and gait training I have seen patient Nathan Zambrano on 03/16/17. My clinical findings support the need for the requested home health care services because: Ltd mobility - disease progression Deconditioned w/ increased weakness High risk of falls I certify that my clinical findings support that this patient is homebound because: Unsteady gait/balance Danay Mcintyre MD R2 Mar 16, 2017 11:14
[2017-03-16] MEDS ORDERED: WALKER/ADULT/FO1 MIS (11:57)
--- NOTE | 2017-03-21 23:23 | HHI.DS ---
Discharge Summary Admission Date Mar 12, 2017 at 21:04 Discharge Date: Mar 16, 2017 Admitting Diagnosis severe sepsis, acute kidney injury, alcohol withdrawal (1) Knee effusion, left Plan: Knee osteoarthritis sustained from a fall via syncopal events. Continues complain of left knee pain. Patient is afebrile with normal CBC. History of knee meniscal issues in the past. Differential includes traumatic exacerbation of meniscal tear versus knee ligament injury. - Orthopedic consult: Recommends PT with [facility] and WBAT with follow-up MRI as an outpatient. - PT plus NSAIDs plus weight-bearing as tolerated, range of motion as tolerated - Patient [facility], per case management ICD Codes: M25.462 - Effusion, left knee Status: Acute (2) SIRS (systemic inflammatory response syndrome) Plan: initial: Fever 102.3, tachycardic, respiratory rate up to 22, WBC 15.1. Lactic acid normal. Chest x-ray and urinalysis normal. No obvious soft tissue infections. No signs of meningitis. Initially presented with hypotension and tachycardia, but resolved with IV fluids. Had acute kidney injury. CBC: WBC 10.8 Blood cultures: No growth 4 days Medications: Normal saline at 115 milliliters per hour Zosyn every 6 hours, discontinued (03/13-03/16) Tylenol when necessary for fever ICD Codes: R65.10 - Systemic inflammatory response syndrome (SIRS) of non- infectious origin without acute organ dysfunction Status: Resolved (3) Syncope Plan: Possible syncope versus presyncope versus seizure. History of alcohol withdrawal seizures in the past. Did not have reported convulsions, tongue biting, loss of stool or urine. Not sure if he ever actually blacked out. - ECHO: Ejection fraction of 55-60%. Poor visualization of the left ventricular wall. Doppler parameters consistent with impaired left ventricular relaxation, grade 1 diastolic dysfunction. Trace mitral valve regurgitation. Trace tricuspid valve regurgitation. - EEG: Normal awake EEG. No evidence of focal or diffuse abnormality. - Seizure precautions - Keppra level: 27.5 in therapeutic range - Continue Keppra from home - Telemetry ICD Codes: R55 - Syncope and collapse Status: Acute (4) Macrocytic anemia Plan: hemoglobin low at 11.4, MCV 103.0. Possibly effect of alcohol. Hemoglobin mildly downtrending, likely dilutional effect from fluids. - Vitamin B12: 738 - Folate: Greater than 20 - Counseling on alcohol abuse ICD Codes: D53.9 - Nutritional anemia, unspecified Status: Chronic (5) Acute kidney injury Plan: Presume acute kidney injury with BUN 51, Cr 2.34 at admission. - Monitor function, improving - Avoid nephrotoxic agents - Avoid IV contrast if possible - Avoid NSAIDs - Renal ultrasound if not improving - Renal consult if not improving - Monitor electrolytes Medications: Normal saline at 115 milliliters per hour ICD Codes: N17.9 - Acute kidney failure, unspecified Status: Resolved (6) Alcoholism /alcohol abuse Plan: History of alcoholism, had fall at home, unclear whether related to an alcohol withdrawal seizure. Had 4 alcohol withdrawal seizures in the past. - Counseling on alcohol abuse - CIWA protocol, scores ranging from 1-13 with 2 mg of Ativan given over the last 24 hours - MV, thiamine, folic acid - Ativan PRN for withdrawal symptoms ICD Codes: F10.20 - Alcohol dependence, uncomplicated Status: Chronic (7) Dehydration Plan: Initially with tachycardia, low blood pressures, elevated lactic acid. Significantly improved after fluid boluses in ED. - Continue NS at maintenance. - Monitor hydration status. ICD Codes: E86.0 - Dehydration Status: Acute (8) Hypomagnesemia Plan: - Replaced in ED - 1 g IV magnesium given on 03/14 ICD Codes: E83.42 - Hypomagnesemia Status: Resolved (9) Hypocalcemia Plan: Severe hypocalcemia - Given calcium gluconate in ED Calcium carbonate 500 mg daily - Continue to monitor ICD Codes: E83.51 - Hypocalcemia Status: Resolved (10) Nutrition, metabolism, and development symptoms Plan: - Renal diet - Hypovolemic hyponatremia, receiving IV fluids - Acute kidney injury, avoid nephrotoxic agents - Monitor electrolytes regularly and replace - Severe hypocalcemia, replace and monitor - center director lead teacher for electrolyte abnormalities - IVF NS at maintenance, adjust as needed ICD Codes: R63.8 - Other symptoms and signs concerning food and fluid intake Status: Acute (11) No contraindication to deep vein thrombosis (DVT) prophylaxis Plan: Heparin 5000 units tid, discontinued on discharge ICD Codes: Z78.9 - Other specified health status Status: Acute Brief History 52 year old male with a history of alcoholism presents to the ED after falling in his kitchen. he is uncertain but believes he may have blacked out for a few seconds when he fell. His roommate witnessed the incident and did not report any convulsions. He did not have loss of stool or urine or bite his tongue. He fell backwards, twisted his knee, and landed on his buttocks, lower back, and right shoulder. He has pain and swelling in his left knee and pain in his lower back and right shoulder. He has pain in his posterior neck. He reports no fevers, chills, recent weight loss, chest pain, abdominal pain, nausea, vomiting , or diarrhea. He reports drinking a few beers last night. He has a history of alcohol withdrawal seizures in the past, 4X at least. He reports no significant past medication history. He has gotten intermittently lightheaded for the past 5 years ever since starting new blood pressure medicines. He has never passed out before. He reports no heart problems in the past. PE at Discharge GENERAL: Well-nourished, well-developed male lying in bed currently in no acute distress. SKIN: Warm and dry. No rash. HEENT: Atraumatic, normocephalic with EOMI. MMM. No rhinorrhea. CARDIOVASCULAR: Regular rate and rhythm without obvious murmurs, gallops, or rubs. RESPIRATORY: Clear to auscultation bilaterally with no CRW. No increased work of breathing. GASTROINTESTINAL: Abdomen soft, non-tender, nondistended with positive bowel sounds. No masses appreciated. MUSCULOSKELETAL: No cyanosis or edema. Strength grossly WNL Left lower extremity: No erythema or skin changes noted on inspection. Knee joint without warmth.. Effusion of left knee present, not increased from prior exams. Patient refuses to flex knee for proper evaluation including anterior/ posterior drawer test, patellar grind test, and Arelis's test. 2+ popliteal pulse palpated as well as TP and PT pulses. Range of motion at the ankle and hip within normal limits. Normal sensation throughout the lower extremity. NEURO/PSYCH: Afocal. Awake, alert, and oriented x3. Motor and sensory grossly within normal limits. No tremor. Normal speech and judgment. Normal interaction with examiners. Hospital Course 52 year old male with a history of alcoholism presents to the ED after falling in his kitchen; presented meeting SIRS criteria and MAGALIE. Patient initially presented meeting SIRS criteria and a MAGALIE, however resolved rapidly with IV fluids. Patient sustained persistent knee effusion of the left knee, likely knee osteoarthritis precipitated by the traumatic fall. Orthopedics has seen and signed off and suggested follow-up MRI as an outpatient. Patient has scheduled a [facility] Patient discharged in stable condition Pt Condition on Discharge: Stable Discharge Disposition: Disch w/ Home Health Serv Discharge Instructions DIET: Follow Instructions for: As Tolerated, No Restrictions Activities you can perform: Weight Bearing as Angelo Other Activity Instructions: Cont Physical Therapy with Range of Motion exercises, and preform weight-bearing activities as tolerated (per orthopedic surgery recommendation). Danay Mcintyre MD R2 Mar 21, 2017 23:23
== END 2017-03-16 13:44 | disposition home health service (06) | DRG 564 ==
LOC: NEPC 15:36 → NEDA 21:04 → N04B 03-13
PROVIDERS: ADMIT Family Medicine; ATTEND Family Medicine
DX: M25.462 Effusion, left knee (principal); R65.11 Systemic inflammatory response syndrome (SIRS) of non-infectious origin with acute organ dysfunction; N17.9 Acute kidney failure, unspecified; I95.9 Hypotension, unspecified; E87.1 Hypo-osmolality and hyponatremia; E83.42 Hypomagnesemia; E83.51 Hypocalcemia; F10.20 Alcohol dependence, uncomplicated; Z87.891 Personal history of nicotine dependence; W18.30XA Fall on same level, unspecified, initial encounter; Y92.000 Kitchen of unspecified non-institutional (private) residence as the place of occurrence of the external cause; D53.9 Nutritional anemia, unspecified; E86.0 Dehydration; M17.12 Unilateral primary osteoarthritis, left knee; E87.6 Hypokalemia; R55 Syncope and collapse; X50.1XXA Overexertion from prolonged static or awkward postures, initial encounter; M54.2 Cervicalgia; M54.5 Low back pain; M79.672 Pain in left foot; R00.0 Tachycardia, unspecified; R15.9 Full incontinence of feces
CPT/HCPCS: 70450; 71010; 72100; 73564; 76937; 80048; 80053; 80177; 81001; 82550; 82607; 82746; 83605; 83735; 84100; 84132; 84155; 84484; 85025; 85027; 85610; 85730; 86140; 87040; 93005; 93306; 94150; 95819; 96361; 96365; 96375; 96376; J0610; J1644; J2060; J2543; J3475; J7030; J7050